=== PATIENT | female | born 1940 | race Caucasian/White ===

== ENCOUNTER → 2018-02-16 | Outpatient (CLI) | payer MEDICARE, OTHER ==
[~2018-02-16] MED LIST: ALLO100 PO; ATEN25 PO; HYDACE5 PO; POTA10T PO; POTA20PAC PO; RXHYDACE PO; TRAM50 PO; TRIHYD5075 PO
== END | disposition home or self-care (01) ==
LOC: LAB EV 17:10 → LAB SHORT 17:10
DX: N39.0 Urinary tract infection, site not specified (principal)
CPT/HCPCS: 87086

== ENCOUNTER 2018-06-23 16:52 | Emergency (ER) | payer MEDICARE, OTHER ==
[~2018-06-23] VITALS: Ht 157.5 cm; Wt 127.0 kg
[2018-06-23] MEDS ORDERED: LISI5 PO (17:41)
[2018-06-23] MEDS ORDERED: BUME1 (17:41)
[2018-06-23] MEDS ORDERED: PANT40 PO (17:42)
[2018-06-23] MEDS ORDERED: METO50ER PO (17:42)
[2018-06-23] MEDS ORDERED: Bumetanide0.5 MG PO (18:10)
[2018-06-23 18:50] LABS: Blood, Urine 5+ (Neg); Glucose Qualitative, Urine Neg (Neg); Ketones, Urine 1+ (Neg); Leukocyte Esterase, Urine 3+ (Neg); Nitrite, Urine Pos (Neg); Protein, Urine 3+ (Neg); Urobilinogen, Urine 3+ (Normal)
[2018-06-23] MEDS ORDERED: Keflex500 MG PO (19:13)
[2018-06-23 19:17] LABS: Appearance, Urine Cloudy (Clear); Bilirubin, Urine 1+ (Neg); Color, Urine Amber (P-Yellow)
[2018-06-23 19:18] LABS: Amorphous Light (0-Heavy); Bacteria Mod /hpf; Mucus Mod (0-Heavy); Source, Urine Catheter; Squamous Epithelial Cells Few /hpf (Few); White Blood Cells, Urine TNTC /hpf (0-5)
== END 2018-06-23 19:59 | disposition home or self-care (01) ==
LOC: ER 16:52
PROVIDERS: Emergency Medicine
DX: S86.912A Strain of unspecified muscle(s) and tendon(s) at lower leg level, left leg, initial encounter (principal); N39.0 Urinary tract infection, site not specified; E66.01 Morbid (severe) obesity due to excess calories; Z68.43 Body mass index [BMI] 50.0-59.9, adult; W17.89XA Other fall from one level to another, initial encounter; Z88.5 Allergy status to narcotic agent; Z79.899 Other long term (current) drug therapy; I10 Essential (primary) hypertension
CPT/HCPCS: 73700; 81001; 87077; 87086; 87186; 99284-25; P9612

== ENCOUNTER 2018-07-08 16:54 | Inpatient (IN) | payer MEDICARE, OTHER ==
[~2018-07-08] VITALS: Ht 157.5 cm; Wt 122.3 kg
[~2018-07-08 16:54] MED LIST changes: +BUME1; +BUME2 PO; +Keflex500 MG PO; +LISI5 PO; +METO50ER PO; +PANT40 PO
[2018-07-08 17:39] LABS: BASOPHILS ABSOLUTE AUTO 0.06 K/mm3 (0.00-0.23); BASOPHILS PERCENT AUTO 0 % (0-2); EOSINOPHILS PERCENT AUTO 0 % (0-6); Hemoglobin 13.4 g/dL (11.5-16.0); IMMATURE GRAN ABSOLUTE AUTO 0.25 K/mm3 (0.00-0.10); IMMATURE GRAN PERCENT AUTO 1 % (0-1); LYMPHOCYTES ABSOLUTE AUTO 0.69 K/mm3 (0.84-5.20); LYMPHOCYTES PERCENT AUTO 3 % (21-46); MONOCYTES ABSOLUTE AUTO 2.55 K/mm3 (0.16-1.47); MONOCYTES PERCENT AUTO 10 % (4-13); Mean Corpuscular HGB 32.1 pg (26.0-34.0); Mean Corpuscular HGB Conc 33.5 g/dL (31.5-36.5); Mean Corpuscular Volume 96 fL (80-100); Mean Platelet Volume 10.2 fL (9.1-12.4); NEUTROPHILS ABSOLUTE AUTO 22.18 K/mm3 (1.96-9.15); NEUTROPHILS PERCENT AUTO 86 % (41-73); Platelet Count 224 K/mm3 (150-400); RDW Coefficient Variation 13.2 % (11.7-14.2); RDW Standard Deviation 46.7 fL (35.1-46.3); Red Blood Cell Count 4.18 M/mm3 (3.80-5.20); White Blood Cell Count 25.73 K/mm3 (4.00-11.30)
[2018-07-08 18:04] LABS: Albumin, Blood 2.7 g/dL (3.4-5.0); Albumin/Globulin Ratio 0.7 (0.8-1.8); Bilirubin, Total 1.6 mg/dL (0.1-1.0); Bun/Creatinine Ratio 18.7 (12.0-20.0); Calcium, Blood 9.2 mg/dL (8.5-10.1); Creatinine, Blood 1.34 mg/dL (0.40-1.00); Globulin, Blood 3.8 g/dL (2.2-4.0); Potassium, Blood 3.8 mmol/L (3.5-5.5); Total Protein, Blood 6.5 g/dL (6.4-8.2); Troponin I 0.076 ng/mL (0.000-0.040)
[2018-07-08 19:28] LABS: Source, Urine Catheter
[2018-07-08 19:30] LABS: Appearance, Urine Cloudy (Clear); Bilirubin, Urine Neg (Neg); Blood, Urine 5+ (Neg); Color, Urine Amber (P-Yellow); Glucose Qualitative, Urine Neg (Neg); Ketones, Urine 1+ (Neg); Leukocyte Esterase, Urine 3+ (Neg); Nitrite, Urine Pos (Neg); Protein, Urine 3+ (Neg); Specific Gravity, Urine 1.015 (1.003-1.022); Urobilinogen, Urine 1+ (Normal)
[2018-07-08 19:49] LABS: White Blood Cells, Urine TNTC /hpf (0-5)
[2018-07-08 19:50] LABS: Bacteria Many /hpf; Red Blood Cells, Urine 25-50 /hpf (0-2); Squamous Epithelial Cells Rare /hpf (Few)
--- NOTE | 2018-07-08 21:26 | NUR ---
Report from Jass WAGNER on PT being admitted with UTI unresolved on oral keflex completed course and still has foul smelling urine elevated wbc and profound weakness per medical record. PT had elevated troponin 0.076 resulted at 1804 and will be on tele monitor and continue serial troponins. PT had Son accompany to ER but he has gone home and PT reported to be poor historian. Sellers cath was placed in ED. Await admission
[2018-07-09 00:32] LABS: Creatine Kinase MB 4.1 ng/mL (0.0-3.6); Creatine Kinase MB Index 1.6 (0.0-4.0); Troponin I 0.108 ng/mL (0.000-0.040)
--- NOTE | 2018-07-09 06:26 | NUR ---
PT CONTINUES TO HAVE PAIN AND PROBLEMS WITH URINARY TRACT INFECTION. ELEVATED TROPONIN X 2 2ND SLIGHTLY HIGHER. DENIES CHEST PAIN . HAS ECHO PENDING . 3 PLUS DEEP EDEMA WITH MULTPLE SKIN ISSUES RELATED TO MOISURE AND PRESSURE. PAUL WAS PLACED IN ER AND URINE FOUL SMELLING DARK ABNER WITH SEDIMENT CLOUDY. CO BURNING HX RECENT ECOLI UTI WITH ORAL ABX COMPLETED. MORBID OBESITY, HX OF SEVERAL RECEMNT FALLS. MEDICATED X 2 WITH TYLENOL AND 2ND LITER OF IV FLUID RUNNING
[2018-07-09 08:22] LABS: BASOPHILS ABSOLUTE AUTO 0.05 K/mm3 (0.00-0.23); BASOPHILS PERCENT AUTO 0 % (0-2); EOSINOPHILS ABSOLUTE AUTO 0.01 K/mm3 (0.00-0.68); EOSINOPHILS PERCENT AUTO 0 % (0-6); Hematocrit 37.2 % (33.0-51.0); Hemoglobin 11.9 g/dL (11.5-16.0); IMMATURE GRAN ABSOLUTE AUTO 0.35 K/mm3 (0.00-0.10); IMMATURE GRAN PERCENT AUTO 2 % (0-1); LYMPHOCYTES ABSOLUTE AUTO 0.85 K/mm3 (0.84-5.20); LYMPHOCYTES PERCENT AUTO 4 % (21-46); MONOCYTES ABSOLUTE AUTO 1.74 K/mm3 (0.16-1.47); MONOCYTES PERCENT AUTO 8 % (4-13); Mean Corpuscular HGB 31.2 pg (26.0-34.0); Mean Corpuscular Volume 97 fL (80-100); Mean Platelet Volume 10.1 fL (9.1-12.4); NEUTROPHILS ABSOLUTE AUTO 17.97 K/mm3 (1.96-9.15); NEUTROPHILS PERCENT AUTO 86 % (41-73); Platelet Count 199 K/mm3 (150-400); RDW Coefficient Variation 13.5 % (11.7-14.2); RDW Standard Deviation 48.2 fL (35.1-46.3); Red Blood Cell Count 3.82 M/mm3 (3.80-5.20); White Blood Cell Count 20.97 K/mm3 (4.00-11.30)
[2018-07-09 08:47] LABS: Albumin, Blood 2.3 g/dL (3.4-5.0); Albumin/Globulin Ratio 0.7 (0.8-1.8); Bilirubin, Total 1.4 mg/dL (0.1-1.0); Calcium, Blood 8.9 mg/dL (8.5-10.1); Creatinine, Blood 1.5 mg/dL (0.40-1.00); Globulin, Blood 3.5 g/dL (2.2-4.0); Potassium, Blood 4.2 mmol/L (3.5-5.5); Total Protein, Blood 5.8 g/dL (6.4-8.2)
[2018-07-09 08:50] LABS: Creatine Kinase MB 3.5 ng/mL (0.0-3.6); Creatine Kinase MB Index 1.7 (0.0-4.0); Troponin I 0.087 ng/mL (0.000-0.040)
--- NOTE | 2018-07-09 18:49 | NUR ---
SHIFT SUMMARY PATIENT A&O X3, CAN BE FORGETFUL AT TIMES. REPOSITION PRN. MEDICATED X1 FOR PAIN. DENIES ANY NAUSEA. SOB W/ EXERTION. 02 @ 2 L NC. D5 1/2NS KCL 10 MeQ RUNNING @ 125. FAMILY AT THE BEDSIDE. NO ACUTE CHANGES.
--- NOTE | 2018-07-09 23:44 | NUR ---
called positive blood culture result to MD Carter after discussing current antibotic coverage with Pharmacist Jin. No new orders. PT recieved 2 gram iv rocephin and getting IV fluids at 125 ml hr. Urine foul cloudy and previous urine culture showed Ecoli UTI.
[2018-07-10 05:19] LABS: Albumin, Blood 2.1 g/dL (3.4-5.0); Anion Gap 6 mmol/L (6-16); Blood Urea Nitrogen 27 mg/dL (8-24); Bun/Creatinine Ratio 19.6 (12.0-20.0); CO2, Blood 25 mmol/L (21-32); Calcium, Blood 8.5 mg/dL (8.5-10.1); Chloride, Blood 109 mmol/L (98-108); Creatinine, Blood 1.38 mg/dL (0.40-1.00); Glomerular Filtration Rate 39 (60-); Glucose, Blood 133 mg/dL (70-99); Phosphorus, Blood 2.8 mg/dL (2.5-4.9); Sodium, Blood 140 mmol/L (136-145)
--- NOTE | 2018-07-10 05:41 | NUR ---
PT HAS POSITIVE BLOOD CULTUE AND CONTINUES TO CO BACK AND FLANK PAIN. COUGHING HACKING NONPRODUCTIVE. PT HAS MULTIPLE SKIN ISSUES MOISTURIZERS APPLIED WELL ANTIFUNGAL POWDER. DIFFICULT TO MOVE IN BED DUE TO OBESITY. HAS LARGE UNEQUAL PANNUS LT SIDED LARGE SKIN FLAP. PERIODS OF FEELING HOT VERSUS COLD. CONTINUES ON IV FLUID WITH POTASSIUM AND IV ANTIBIOTICS FOR UTI
--- NOTE | 2018-07-10 07:56 | NUR ---
PT REPORTS FEELING SOB THIS AM, RESP AT 20 AND O2 SATUARTIONS AT 90. PT REPOSITIONS TO FOWLERS AND RESP AT 20 AND 02 SAT 93-94% ON RA. LS DIMINISHED T/O, EXP WHEEZE IN STARR. NOTIFED DR MELENDEZ, NEW ORDERS FOR RT PER PROTOCOL AND ST EVAL. WILL CONTINUE TO MONITOR.
--- NOTE | 2018-07-10 19:54 | NUR ---
SHIFT SUMMARY PT A&Ox3, FORGETFUL AT TIMES. PT RESTING IN BED DURING SHIFT, REPOSITIONED FOR COMFORT. PT UP IN CHAIR FOR LUNCH, MAX ASSIST TO AND FROM CHAIR. PT REPORTS GENERALIZED AND BACK PAIN, MEDICATED X1 WITH TYLENOL. PT SOB THIS AM, O2 SATURATION >92% ON RA, COUGH PRESENT. LS DIM T/O, BREATHING TREATMENT PER RT. PT DENIES N/V DURING SHIFT. PT RECEIVING IV ANTIBIOTICS. PAUL IN PLACE, PATENT AND DRAINING. ELEVATED BP THIS AM, TRENDING DOWN THIS AFTERNOON. OTHER VSS. NO OTHER ACUTE CHANGES NOTED DURING SHIFT. REPORT GIVEN TO ONCOMING RN.
--- NOTE | 2018-07-11 04:22 | NUR ---
Shift summary: Pt gets short of breath very easily with very little exertion. Pt then starts to panic. Pt then has to sit at side of breath to get her breath. Her abdomen pushes up against her lungs when she is in bed. Pt does not tolerate laying flat at all. Face gets very red. Very difficult to turn her and keep her comfortable. Tylenol given x 2 during night for headache.
[2018-07-11 05:39] LABS: BASOPHILS ABSOLUTE AUTO 0.02 K/mm3 (0.00-0.23); BASOPHILS PERCENT AUTO 0 % (0-2); EOSINOPHILS ABSOLUTE AUTO 0.12 K/mm3 (0.00-0.68); EOSINOPHILS PERCENT AUTO 2 % (0-6); Hematocrit 38.3 % (33.0-51.0); Hemoglobin 12.1 g/dL (11.5-16.0); IMMATURE GRAN ABSOLUTE AUTO 0.02 K/mm3 (0.00-0.10); IMMATURE GRAN PERCENT AUTO 0 % (0-1); LYMPHOCYTES PERCENT AUTO 14 % (21-46); MONOCYTES PERCENT AUTO 10 % (4-13); Mean Corpuscular HGB 31.3 pg (26.0-34.0); Mean Corpuscular HGB Conc 31.6 g/dL (31.5-36.5); Mean Corpuscular Volume 99 fL (80-100); Mean Platelet Volume 10.6 fL (9.1-12.4); NEUTROPHILS ABSOLUTE AUTO 5.93 K/mm3 (1.96-9.15); NEUTROPHILS PERCENT AUTO 74 % (41-73); Platelet Count 219 K/mm3 (150-400); RDW Coefficient Variation 13.4 % (11.7-14.2); Red Blood Cell Count 3.87 M/mm3 (3.80-5.20); White Blood Cell Count 7.99 K/mm3 (4.00-11.30)
[2018-07-11 06:14] LABS: Magnesium, Blood 1.6 mg/dL (1.6-2.4)
[2018-07-11 06:16] LABS: Alanine Aminotransfer (ALT/SGP 15 U/L (12-78); Albumin, Blood 1.6 g/dL (3.4-5.0); Albumin/Globulin Ratio 0.3 (0.8-1.8); Alk Phos 124 U/L (50-136); Anion Gap 9 mmol/L (6-16); Aspartate Aminotrans (AST/SGOT 13 U/L (12-37); Bilirubin, Total 0.5 mg/dL (0.1-1.0); Blood Urea Nitrogen 19 mg/dL (8-24); Bun/Creatinine Ratio 24.7 (12.0-20.0); CO2, Blood 22 mmol/L (21-32); Calcium, Blood 8.4 mg/dL (8.5-10.1); Chloride, Blood 108 mmol/L (98-108); Creatinine, Blood 0.77 mg/dL (0.40-1.00); Globulin, Blood 4.6 g/dL (2.2-4.0); Glomerular Filtration Rate >60 (60-); Glucose, Blood 80 mg/dL (70-99); Phosphorus, Blood 2.6 mg/dL (2.5-4.9); Potassium, Blood 4.4 mmol/L (3.5-5.5); Sodium, Blood 139 mmol/L (136-145); Total Protein, Blood 6.2 g/dL (6.4-8.2)
--- NOTE | 2018-07-11 17:20 | NUR ---
SHIFT SUMMARY THE PATIENT PRESENTED THIS SHIFT WITH VITALS WNL, A&O X3 AND WITH LUNG SOUNDS THAT HAD AN INSPIRATIONAL WHEEZE ON THE RIGHT SIDE UPPER AND DIMINISHED THROUGHOUT. THE PATIENT HAS WORKED WITH PT/OT AND HAS BEEN GOTTEN OUT OF BED THREE TIMES THIS SHIFT. THE PATIENT WENT DOWN TO X-RAY FOR PICTURES. THE PATIENT'S SON WAS INTO VISIT THIS SHIFT AROUND LUNCH. THE PATIENT IS SITTING IN HER CHAIR AT THIS TIME, WILL CONTINUE TO MONITOR.
--- NOTE | 2018-07-12 04:50 | NUR ---
sHIFT SUMMARY. Pt very anxious during the night. It starts with a coughing spell, and lots of wheezing. pt gets very anxious and cant breath unless she sits up at side of bed. No sputum noted. VSS. Pt recieved resp tx's x 2 during the night. pt states they seem to help.
[2018-07-12 05:34] LABS: Albumin, Blood 2.2 g/dL (3.4-5.0); Anion Gap 5 mmol/L (6-16); Blood Urea Nitrogen 20 mg/dL (8-24); Bun/Creatinine Ratio 17.2 (12.0-20.0); CO2, Blood 26 mmol/L (21-32); Calcium, Blood 9.5 mg/dL (8.5-10.1); Chloride, Blood 110 mmol/L (98-108); Creatinine, Blood 1.16 mg/dL (0.40-1.00); Glomerular Filtration Rate 48 (60-); Glucose, Blood 96 mg/dL (70-99); Phosphorus, Blood 2.4 mg/dL (2.5-4.9); Potassium, Blood 4.2 mmol/L (3.5-5.5); Sodium, Blood 141 mmol/L (136-145)
[2018-07-12 14:44] LABS: Adenovirus Not Detected (NOT DETECT); Coronavirus 229E Not Detected (NOT DETECT); Coronavirus HKU1 Not Detected (NOT DETECT); Coronavirus NL63 Not Detected (NOT DETECT); Coronavirus OC43 Not Detected (NOT DETECT); Human Metapneumovirus Not Detected (NOT DETECT); Human Rhinovirus/Enterovirus Not Detected (NOT DETECT); Influenza A Not Detected (NOT DETECT); Influenza A/2009-H1 Not Detected (NOT DETECT); Influenza A/H1 Not Detected (NOT DETECT); Influenza A/H3 Not Detected (NOT DETECT); Influenza B Not Detected (NOT DETECT); Parainfluenza Virus 1 Not Detected (NOT DETECT); Parainfluenza Virus 2 Not Detected (NOT DETECT)
[2018-07-12 14:45] LABS: Bordetella pertussis Not Detected (NOT DETECT); Chlamydophila pneumoniae Not Detected (NOT DETECT); Mycoplasma pneumoniae Not Detected (NOT DETECT); Parainfluenza Virus 3 Not Detected (NOT DETECT); Parainfluenza Virus 4 Not Detected (NOT DETECT); Respiratory Syncytial Virus Not Detected (NOT DETECT)
--- NOTE | 2018-07-12 17:08 | NUR ---
DR. SOMERS CALLED BACK PT MUST BE NPO AT MIDNIGHT TONIGHT FOR TOMORROW'S PROCEDURE. SHE MAY EAT/DRINK UNTIL THEN
--- NOTE | 2018-07-12 17:28 | NUR ---
SHIFT SUMMARY 77 YR OLD FEMALE ADMITTED FOR SEPSIS, UTI, FALLS, SOB, PAIN. FULL CODE. E-COLI IN URINE. MORBID OBESITY. DUE TO HAVE A URETERAL STENT PLACED TOMORROW BY DR. SOMERS. SHE IS NPO AT MIDNIGHT TONIGHT. SHE LIVES AT HOME WITH AND 3 GROWN SONS. HX: CHF, HTN, CVA, GERD, FALLS. IV IN RT WRIST IS POSITIONAL. PLAN IS FOR DC TO REHAB, THEN HOME. 2 LPM OF O2. PT STATES FREQUENT SOB AND COUGHING. SHE IS CHILKOOT - W/2 BILATERAL HEARING AIDS. SHE IS ANXIOUS. INFORMED THAT SHE IS AN EASY ONE PERSON ASSIST W/FWW AND GAITBELT, BUT I AM UNCONVINCED. I PERSONALLY FEEL SAFER WITH A 2 PERSON FOR TRANSFERS WITH THIS PT. SHE IS WEAK, SHAKEY, AND HX OF FALLS.
[2018-07-13 04:10] LABS: BASOPHILS ABSOLUTE AUTO 0.03 K/mm3 (0.00-0.23); BASOPHILS PERCENT AUTO 1 % (0-2); EOSINOPHILS ABSOLUTE AUTO 0.21 K/mm3 (0.00-0.68); EOSINOPHILS PERCENT AUTO 4 % (0-6); Hematocrit 37.1 % (33.0-51.0); Hemoglobin 11.9 g/dL (11.5-16.0); IMMATURE GRAN ABSOLUTE AUTO 0.02 K/mm3 (0.00-0.10); IMMATURE GRAN PERCENT AUTO 0 % (0-1); LYMPHOCYTES ABSOLUTE AUTO 1.77 K/mm3 (0.84-5.20); LYMPHOCYTES PERCENT AUTO 34 % (21-46); MONOCYTES ABSOLUTE AUTO 0.54 K/mm3 (0.16-1.47); MONOCYTES PERCENT AUTO 11 % (4-13); Mean Corpuscular HGB Conc 32.1 g/dL (31.5-36.5); Mean Corpuscular Volume 97 fL (80-100); Mean Platelet Volume 9.6 fL (9.1-12.4); NEUTROPHILS ABSOLUTE AUTO 2.58 K/mm3 (1.96-9.15); NEUTROPHILS PERCENT AUTO 50 % (41-73); Platelet Count 240 K/mm3 (150-400); RDW Coefficient Variation 13.1 % (11.7-14.2); Red Blood Cell Count 3.84 M/mm3 (3.80-5.20); White Blood Cell Count 5.15 K/mm3 (4.00-11.30)
[2018-07-13 04:31] LABS: Albumin, Blood 2.2 g/dL (3.4-5.0); Anion Gap 5 mmol/L (6-16); Blood Urea Nitrogen 20 mg/dL (8-24); CO2, Blood 30 mmol/L (21-32); Calcium, Blood 9.6 mg/dL (8.5-10.1); Chloride, Blood 108 mmol/L (98-108); Creatinine, Blood 1.11 mg/dL (0.40-1.00); Glomerular Filtration Rate 50 (60-); Glucose, Blood 93 mg/dL (70-99); Phosphorus, Blood 3.1 mg/dL (2.5-4.9); Sodium, Blood 143 mmol/L (136-145)
--- NOTE | 2018-07-13 07:09 | NUR ---
SHIFT SUMMARY PT SLEPT T/O SHIFT. PT WAS MADE NPO AT MIDNIGHT PER ORDERS. PT HAD NO COMPLAINTS OR ISSUES NOTED. CALL LIGHT IN REACH
--- NOTE | 2018-07-13 15:28 | NUR ---
PT TAKEN FOR SURGERY PT TAKEN FOR URETERAL STENT PLACEMENT. I WAS INFORMED PT WILL BE RETURNED TO MY CARE. I PROVIDED EMPLOYEE BENEFITS INSURANCE AGENT WITH [employer]LLY PROTOCOL RE: POST-OP VITALS.
--- NOTE | 2018-07-13 16:12 | NUR ---
PT RETURNED FROM SURGERY PT A&O X4, REQUESTING [id number] MEDS. I AM KEEPING NPO UNTIL I CAN CONTACT DR FOR FURTHER ORDERS. SURGICAL NURSE INFORMED ME THAT PT TOLERATED PROCEDURE WELL. SANGUINOUS/PUS FLUID DRAINING INTO BAG SECURED BY TEGODERM-GRAVITY DRAIN. FAMILY IN ROOM WITH PT. POST OP VITAL SIGNS BEGUN.
--- NOTE | 2018-07-13 16:41 | NUR ---
PT REFUSING PAIN MEDS PT STATES SHE WILL ONLY TAKE TYLENOL FOR PAIN CONTROL. PT RATES HER PAIN AN 8. SHE DID ACCEPT 650 MG OF TYLENOL FOR PAIN CONTROL. WILL REASSESS
--- NOTE | 2018-07-13 17:39 | NUR ---
SHIFT SUMMARY 77 YR OLD FEMALE ADMITTED FOR SEPSIS/UTI/FALLS/SOB/PAIN. FULL CODE. FOUND TO HAVE A KIDNEY STONE OBSTRUCTION. TODAY DR. SOMERS PERFORMED A URETERAL STENT PROCEDURE TO THE LEFT SIDE. PT TOLERATED PROCEDURE WELL. PUS AND SANGUINOUS FLUID IS GRAVITY DRAINING INTO TUBING WHICH IS ATTACHED TO A NEPHROSTOMY BAG. DR. SOMERS DOES NOT RECOMMEND THIS BE FLUSHED. POST OP VITAL SIGNS ARE BEING PERFORMED PER POLICY AND ORDERS. PT LIVES AT HOME WITH FAMILY, BUT FAMILY REQUESTS REHAB BEFORE PT IS RETURNED HOME. PT PREFERS TO DC DIRECTLY TO HOME. PT RECEIVING IV BUMEX WHICH IS WORKING TO GREAT EFFECT TO MANAGE SUSPECTED FLUID OVERLOAD. PT REFUSING NARCOTIC PAIN CONTROL, ONLY ACCEPTING TYLENOL. PT HAS BEEN RESTARTED ON HER ORDERED CARDIAC DIET. SHE DOES HAVE A PAUL IN PLACE WELL. PT IS A&O X4. HX: CHF, HTN, GERD, FALLS. EUN IS ALSO FOLLOWING THIS PT.
--- NOTE | 2018-07-13 20:12 | NUR ---
*STENT OUTPUT* 200 ML SEROSANGUNIOUS EMPTIED.
--- NOTE | 2018-07-14 02:58 | NUR ---
*OUTPUT NEPHROSTOMY* 200 ML SEROSANGUIANOUS
--- NOTE | 2018-07-14 04:02 | NUR ---
SHIFT SUMMARY PT HAS EXPERIENCED INCREASED PAIN T/O SHIFT. PT TX PER EMAR WITH INCREASED COMFORT. PT HAS BEEN ABLE TO SLEEP OFF AND ON. PT HAS DIFFICULTY FINDING POSITION OF COMFORT. PT HAD NO OTHER ISSUES NOTED. PT CURRENTLY SLEEPING AND BREATHING EASY. CALL LIGHT IN REACH AND BED ALARM ON.
[2018-07-14 05:38] LABS: BASOPHILS ABSOLUTE AUTO 0.03 K/mm3 (0.00-0.23); BASOPHILS PERCENT AUTO 0 % (0-2); EOSINOPHILS ABSOLUTE AUTO 0.11 K/mm3 (0.00-0.68); EOSINOPHILS PERCENT AUTO 1 % (0-6); Hemoglobin 12.7 g/dL (11.5-16.0); IMMATURE GRAN ABSOLUTE AUTO 0.03 K/mm3 (0.00-0.10); IMMATURE GRAN PERCENT AUTO 0 % (0-1); LYMPHOCYTES ABSOLUTE AUTO 0.92 K/mm3 (0.84-5.20); LYMPHOCYTES PERCENT AUTO 11 % (21-46); MONOCYTES ABSOLUTE AUTO 0.86 K/mm3 (0.16-1.47); MONOCYTES PERCENT AUTO 10 % (4-13); Mean Corpuscular HGB 31.5 pg (26.0-34.0); Mean Corpuscular HGB Conc 32.6 g/dL (31.5-36.5); Mean Corpuscular Volume 97 fL (80-100); NEUTROPHILS ABSOLUTE AUTO 6.84 K/mm3 (1.96-9.15); NEUTROPHILS PERCENT AUTO 78 % (41-73); RDW Coefficient Variation 13.2 % (11.7-14.2); RDW Standard Deviation 47.4 fL (35.1-46.3); Red Blood Cell Count 4.03 M/mm3 (3.80-5.20); White Blood Cell Count 8.79 K/mm3 (4.00-11.30)
[2018-07-14 05:51] LABS: Mean Platelet Volume 11.4 fL (9.1-12.4)
[2018-07-14 06:04] LABS: Alanine Aminotransfer (ALT/SGP 22 U/L (12-78); Albumin, Blood 2.5 g/dL (3.4-5.0); Albumin/Globulin Ratio 0.6 (0.8-1.8); Alk Phos 106 U/L (50-136); Anion Gap 8 mmol/L (6-16); Aspartate Aminotrans (AST/SGOT 19 U/L (12-37); Bilirubin, Total 0.5 mg/dL (0.1-1.0); Blood Urea Nitrogen 20 mg/dL (8-24); Bun/Creatinine Ratio 19.2 (12.0-20.0); CO2, Blood 29 mmol/L (21-32); Calcium, Blood 9.4 mg/dL (8.5-10.1); Chloride, Blood 106 mmol/L (98-108); Creatinine, Blood 1.04 mg/dL (0.40-1.00); Globulin, Blood 3.9 g/dL (2.2-4.0); Glomerular Filtration Rate 54 (60-); Glucose, Blood 98 mg/dL (70-99); Magnesium, Blood 1.8 mg/dL (1.6-2.4); Phosphorus, Blood 3.2 mg/dL (2.5-4.9); Potassium, Blood 3.9 mmol/L (3.5-5.5); Sodium, Blood 143 mmol/L (136-145); Total Protein, Blood 6.4 g/dL (6.4-8.2)
--- NOTE | 2018-07-14 17:44 | NUR ---
PATIENT A/OX3, FORGETFUL AT TIMES. L NEPHROSTOMY DRAINING PINK/YELLOW URINE. PAUL TO GRAVITY WITH CLEAR YELLOW OUTPUT. REPORTS PAIN TO L FLANK AND R KNEE. FENTANYL AND TYLENOL GIVEN TO TREAT. PATIENT IS VERY ANXIOUS AT TIMES, CALMS WITH DISCUSSION. MEDICATED X1 FOR NAUSEA THIS SHIFT, REPORTS POOR APPETITE. MULTIPLE SKIN ISSUES, NYSTATIN POWDER TO FOLDS. FALL PRECAUTIONS IN PLACE PER UNIT PROTOCOL.
[2018-07-15 05:36] LABS: BASOPHILS ABSOLUTE AUTO 0.05 K/mm3 (0.00-0.23); BASOPHILS PERCENT AUTO 1 % (0-2); EOSINOPHILS ABSOLUTE AUTO 0.17 K/mm3 (0.00-0.68); EOSINOPHILS PERCENT AUTO 2 % (0-6); Hematocrit 36.7 % (33.0-51.0); Hemoglobin 11.5 g/dL (11.5-16.0); IMMATURE GRAN ABSOLUTE AUTO 0.06 K/mm3 (0.00-0.10); IMMATURE GRAN PERCENT AUTO 1 % (0-1); LYMPHOCYTES ABSOLUTE AUTO 1.54 K/mm3 (0.84-5.20); LYMPHOCYTES PERCENT AUTO 17 % (21-46); MONOCYTES ABSOLUTE AUTO 1.09 K/mm3 (0.16-1.47); MONOCYTES PERCENT AUTO 12 % (4-13); Mean Corpuscular HGB 30.7 pg (26.0-34.0); Mean Corpuscular HGB Conc 31.3 g/dL (31.5-36.5); Mean Corpuscular Volume 98 fL (80-100); NEUTROPHILS ABSOLUTE AUTO 6.04 K/mm3 (1.96-9.15); NEUTROPHILS PERCENT AUTO 67 % (41-73); RDW Coefficient Variation 13.2 % (11.7-14.2); RDW Standard Deviation 47.2 fL (35.1-46.3); Red Blood Cell Count 3.74 M/mm3 (3.80-5.20); White Blood Cell Count 8.95 K/mm3 (4.00-11.30)
--- NOTE | 2018-07-15 05:36 | NUR ---
SHIFT SUMMARY PT SLEPT SOUNDLY T/O SHIFT. AOX3, REPORTS FEELING CONFUSED/DISORIENTED LAST NIGHT & ASKS "WHAT TIME IS IT?" WHEN INFORMED THE TIME SHE STATES "WOW, WHAT HAPPENED TO THE DAY? DID I SLEEP THROUGH IT?" VSS. REPORTS 8/10 PAIN ON BOTH SIDES OF LOWER BACK, MEDICATED W/TYLENOL PER ORDERS. PAUL IS PATENT & DRAINING CLEAR LIGHT YELLOW URINE, NEPHROSTOMY IS PATENT & DRAINING CLEAR (LIGHT RED) CRANBERRY COLORED OUTPUT. PT DENIES NAUSEA OR SOB. CALL LIGHT IS IN REACH.
[2018-07-15 05:51] LABS: Mean Platelet Volume 10.8 fL (9.1-12.4); Platelet Count 213 K/mm3 (150-400)
[2018-07-15 05:57] LABS: Albumin, Blood 2.3 g/dL (3.4-5.0); Anion Gap 5 mmol/L (6-16); Blood Urea Nitrogen 18 mg/dL (8-24); Bun/Creatinine Ratio 19.4 (12.0-20.0); CO2, Blood 30 mmol/L (21-32); Calcium, Blood 9.3 mg/dL (8.5-10.1); Chloride, Blood 104 mmol/L (98-108); Creatinine, Blood 0.93 mg/dL (0.40-1.00); Glomerular Filtration Rate >60 (60-); Glucose, Blood 86 mg/dL (70-99); Phosphorus, Blood 2.4 mg/dL (2.5-4.9); Potassium, Blood 3.4 mmol/L (3.5-5.5); Sodium, Blood 139 mmol/L (136-145)
--- NOTE | 2018-07-15 17:14 | NUR ---
Initial Visit: Palliative Care Consult for AD/POLST Pt is A&O and reports a tolerable pain level of 3/10. She denies dyspnea and anxiety at this time. Pt's son Alicia present for the first few minutes of visit before needing to leave to take care of errands. Engaged in therapeutic discussion regarding goals of care including AD/POLST. Pt reports living at home with her and 2 sons. Alicia is Pt's primary caregiver. 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 Alicia reports at present time having adequate support for her care needs. Listened as she discussed becoming depressed 6 years ago and let her self become deconditioned. She reports that she is motivated to become stronger and is looking forward to being discharged to SNF to help regain her strength. Pt reports her baseline is ability to transfer self and uses a wheelchair to get from point A to point B. She reports ability to dress her self and does spot baths. Engaged in discussion regarding advanced care planning if she continues to decondition. Pt reports that if needed she can affortd to higher caregivers. Discussed AD/POLST with Pt and the importance of having her wishes for life sustaining measures written. Pt states that she thinks she does not want to have CPR but would like to discuss this with her . Educated Pt on life sustaining measures indluding risk factors. She reports that she will have further discussions with her before completing POLST. Pt reports no concerns at this time. Left POLST for Pt to complete. Spoke with Pt's bedside nurse Samantha and she reports no concerns at this time. Palliative Care will remain available.
--- NOTE | 2018-07-15 18:31 | NUR ---
PATIENT A/OX4 THIS SHIFT, W/C BOUND AT BASELINE. SITS UP0 AT SIDE OF BED WITH ASSIST. NEPHROSTOMY DRAINING LIGHT PINK URINE. PAUL TO GRAVITY DRAINING ADEQUATE AMOUNT OF CLEAR/YELLOW URINE. PATIENT REPORTING PAIN TO L FLANK/HIP THIS SHIFT, FENTNAYL AND TYLENOL USED TO TREAT. VSS THIS SHIFT, ON RA. PATIENT TOLERATING DIET, CALLS APPROPRIATELY FOR ASSISTANCE. AWAITING SNF PLACEMENT.
[2018-07-16 05:20] LABS: BASOPHILS ABSOLUTE AUTO 0.05 K/mm3 (0.00-0.23); BASOPHILS PERCENT AUTO 1 % (0-2); EOSINOPHILS ABSOLUTE AUTO 0.35 K/mm3 (0.00-0.68); EOSINOPHILS PERCENT AUTO 4 % (0-6); Hematocrit 36.8 % (33.0-51.0); Hemoglobin 11.7 g/dL (11.5-16.0); IMMATURE GRAN PERCENT AUTO 1 % (0-1); LYMPHOCYTES ABSOLUTE AUTO 1.84 K/mm3 (0.84-5.20); LYMPHOCYTES PERCENT AUTO 21 % (21-46); MONOCYTES ABSOLUTE AUTO 0.88 K/mm3 (0.16-1.47); MONOCYTES PERCENT AUTO 10 % (4-13); Mean Corpuscular HGB 31.3 pg (26.0-34.0); Mean Corpuscular HGB Conc 31.8 g/dL (31.5-36.5); Mean Corpuscular Volume 98 fL (80-100); Mean Platelet Volume 9.8 fL (9.1-12.4); NEUTROPHILS ABSOLUTE AUTO 5.51 K/mm3 (1.96-9.15); NEUTROPHILS PERCENT AUTO 63 % (41-73); Platelet Count 228 K/mm3 (150-400); RDW Coefficient Variation 13.2 % (11.7-14.2); RDW Standard Deviation 47.2 fL (35.1-46.3); Red Blood Cell Count 3.74 M/mm3 (3.80-5.20); White Blood Cell Count 8.73 K/mm3 (4.00-11.30)
[2018-07-16 05:46] LABS: Calcium, Blood 9.5 mg/dL (8.5-10.1); Potassium, Blood 3.4 mmol/L (3.5-5.5)
--- NOTE | 2018-07-16 05:59 | NUR ---
SHIFT SUMMARY PT SLEPT WELL T/O NIGHT. NO ACUTE CHANGES THIS SHIFT. AOX4. VSS. DENIES NAUSEA OR SOB. REPORTS PAIN IN LT FLANK/HIP @NEPHROSTOMY SITE, MEDICATED 1X W/FENTANYL & TYLENOL PER ORDERS, DENIES ANY FURTHER DISCOMFORT THIS AM. NEPHROSTOMY IS DRAINING CLEAR LIGHT BROWN/SPENCER OUTPUT. PAUL IS PATENT & DRAINING CLEAR YELLOW URINE. CALL LIGHT IS IN REACH.
--- NOTE | 2018-07-16 17:37 | NUR ---
SHIFT SUMMARY PT HAS HAD MULTIPLE LARGE BM'S THIS SHIFT. PT HAD INCONTINENCE X1. PAUL AND LEFT NEPHROSTOMY PATENT AND DRAINING YELLOW URINE. NO COMPLAINTS OF PAIN THIS SHIFT. PT WORKED WITH PHYSICAL THERAPY THIS AM AND STOOD AT BEDSIDE. NO ACUTE CHANGES THIS SHIFT. CALL LIGHT IN REACH. WILL CONTINUE TO MONITOR AND REPORT TO ONCOMING RN.
--- NOTE | 2018-07-17 05:34 | NUR ---
SHIFT SUMMARY PT SLEPT SOUNDLY T/O NIGHT. NO ACUTE CHANGES THIS SHIFT. AOX4. VSS. DENIES NAUSEA OR SOB. STILL REPORTING L FLANK/SIDE PAIN, MEDICATED W/TYLENOL & FENTANYL PER ORDERS. NEPHROSTOMY IS PATENT W/CLEAR LIGHT RED/ORANGE DRAINAGE. PAUL IS PATENT & DRAINING. CALL LIGHT IS IN REACH.
[2018-07-17 06:03] LABS: Anion Gap 4 mmol/L (6-16); Blood Urea Nitrogen 18 mg/dL (8-24); CO2, Blood 33 mmol/L (21-32); Calcium, Blood 9.7 mg/dL (8.5-10.1); Chloride, Blood 106 mmol/L (98-108); Creatinine, Blood 0.95 mg/dL (0.40-1.00); Glomerular Filtration Rate >60 (60-); Glucose, Blood 94 mg/dL (70-99); Potassium, Blood 3.5 mmol/L (3.5-5.5); Sodium, Blood 143 mmol/L (136-145)
--- NOTE | 2018-07-17 16:49 | NUR ---
SHIFT SUMMARY TUYET COMPLAINED OF SOME L HIP PAIN TODAY, FOR WHICH TYLENOL WAS HELPFUL. UP TO A CHAIR FOR A FEW HOURS. AO1 TO BSC, HAD 2 BMS. PAUL INTACT AND DRAINING, SEDIMENT PRESENT IN URINE. NEPH TUBE DRESSING C/D/I, DRAINING LIGHT PINKISH URINE. NPO AT MIDNIGHT FOR STENT PLACEMENT TOMORROW. TOOK MEDS PRESCRIBED. CALL LIGHT IN REACH. WCTM
--- NOTE | 2018-07-18 07:12 | NUR ---
SHIFT SUMMARY A/O VENETIE. NEPHROSTOMY AND PAUL DRAINING YELLOW URINE. SHE WAS CATARINO TO SLEEP T/O NIGHT. C/O PAIN IN L HIP AND MEDICATED PER EMAR. CALL LIGHT IN REACH.
--- NOTE | 2018-07-18 14:22 | NUR ---
PT TRANSPORTED TO INTERVENTIONAL RADIOLOGY FOR STENT PLACEMENT VIA STRETCHER IN NO ACUTE DISTRESS.
--- NOTE | 2018-07-18 16:10 | NUR ---
RETURNED FROM PROCEDURE PT AWAKE AND ALERT. VSS. SIPPING ON APPLE JUICE. DENIES ANY PAIN; DRSG TO SITE CLEAN AND DRY. WILL CONTINUE TO MONITOR VITAL SIGNS PER PROTOCOL.
--- NOTE | 2018-07-18 18:15 | NUR ---
SHIFT SUMMARY OX4. TRANSFERS TO BSC AND CHAIR WITH GAIT BELT AND WALKER 1 ASSIST. MORBID OBESITY. PAUL. URINARY STENT PLACED TODAY WITH DR. SOMERS. EATING AND DRINKING WELL. NYSTATIN TO SKIN FOLDS. CONTINENT. CALLS APPROPRIATELY. PLAN FOR SNIFF UPON DISCHARGE.
--- NOTE | 2018-07-19 06:09 | NUR ---
PT had lt nephro tube dc and lt ureteral stent placed for lt obstructing kidney stone. continues on antibiotics to tx ecili uti. vega patent. pushed oral fluids due to poor urine output. urine clearing with increased fluids. Up OOB with 2 assist to bsc. small soft BM. PT is obese and skin folds yeasty rash improving with treatment.
--- NOTE | 2018-07-19 12:24 | NUR ---
UROSTOMY REMOVED YESTERDAY WITH STENT PLACEMENT; PAUL CATHETER REMOVED 07/19/18 @1225 PT TOLERATED WELL.
[2018-07-19] MEDS ORDERED: Acetaminophen325 M1 PO (14:36)
[2018-07-19] MEDS ORDERED: ALBU2.5V5 INH (14:36)
[2018-07-19] MEDS ORDERED: MELA3 PO (14:37)
[2018-07-19] MEDS ORDERED: Colace100 MG PO (14:37)
[2018-07-19] MEDS ORDERED: BISA5EC PO (14:37)
[2018-07-19] MEDS ORDERED: ONDA4 PO (14:38)
[2018-07-19] MEDS ORDERED: Miralax17 GM PO (14:38)
[2018-07-19] MEDS ORDERED: Nystop60 GM TOP (14:38)
[2018-07-19] MEDS ORDERED: Micro-K10 MEQ PO (14:38)
[2018-07-19] MEDS ORDERED: Pyridium100 MG PO (14:39)
[2018-07-19] MEDS ORDERED: SPIR25 PO (14:39)
[2018-07-19] MEDS ORDERED: SENN187 PO (14:39)
--- NOTE | 2018-07-19 16:41 | NUR ---
DISCHARGE SUMMARY PT DISCHARGED WITH [facility] VIA W/C ACCOMPANIED BY SON. ALL VALUABLES SENT HOME WITH PATIENT AND FAMILY. IV'S DISCONTINUED INTACT. PT AND FAMILY VERBALIZED UNDERSTANDING OF MEDICATIONS CHANGES AND GIVEN TIME TO ASK QUESTIONS.
== END 2018-07-19 16:53 | DRG 872 ==
LOC: ER 16:54 → MEDS 20:40 → ENPENDDIS 07-19 14:52 → MEDS 07-19 16:53
PROVIDERS: Emergency Medicine; Hospitalist; Internal Medicine Endocrinology, Diabetes & Metabolism; Physician Assistant; Student in an Organized Health Care Education/Training Program; ADMIT Internal Medicine
PROC: 0T913ZZ Drainage of Left Kidney, Percutaneous Approach (ICD-10-PCS; principal; 2018-07-13)
PROC: 0TP5X0Z Removal of Drainage Device from Kidney, External Approach (ICD-10-PCS; 2018-07-18)
PROC: 0T774DZ Dilation of Left Ureter with Intraluminal Device, Percutaneous Endoscopic Approach (ICD-10-PCS; 2018-07-18)
DX: A41.51 Sepsis due to Escherichia coli [E. coli] (principal); N13.6 Pyonephrosis; N17.9 Acute kidney failure, unspecified; I13.0 Hypertensive heart and chronic kidney disease with heart failure and stage 1 through stage 4 chronic kidney disease, or unspecified chronic kidney disease; I50.32 Chronic diastolic (congestive) heart failure; I24.8 Other forms of acute ischemic heart disease; Z68.43 Body mass index [BMI] 50.0-59.9, adult; J98.11 Atelectasis; E66.01 Morbid (severe) obesity due to excess calories; E87.6 Hypokalemia; N18.3 Chronic kidney disease, stage 3 (moderate); Z86.73 Personal history of transient ischemic attack (TIA), and cerebral infarction without residual deficits; E83.39 Other disorders of phosphorus metabolism; E88.09 Other disorders of plasma-protein metabolism, not elsewhere classified; E86.1 Hypovolemia; E87.70 Fluid overload, unspecified; Z99.3 Dependence on wheelchair; E78.5 Hyperlipidemia, unspecified; K21.9 Gastro-esophageal reflux disease without esophagitis; Z85.820 Personal history of malignant melanoma of skin; Z51.5 Encounter for palliative care
CPT/HCPCS: 36415; 50432; 50693; 51702; 71045; 71046; 71250; 74176; 76770; 80048; 80053; 80069; 81001; 82550; 82553; 83605; 83735; 83880; 84100; 84145; 84484; 85025; 86140; 87040; 87077; 87081; 87086; 87186; 87486; 87581; 87633; 87798; 92610; 93005; 93010; 93306; 93971; 94640; 94667; 94760; 96365-59; 97110; 97162; 97530; 99152; 99153; 99285-25; C1729; C1769; J0696; J1650; J2250; J2405; J3010; J7030; J7040; J7042; J7050; J7060; Q9967

== ENCOUNTER 2018-08-06 23:22 | Inpatient (IN) | payer MEDICARE, OTHER ==
[~2018-08-06] VITALS: Ht 157.5 cm; Wt 118.2 kg
[~2018-08-06 23:22] MED LIST changes: +ALBU2.5V5 INH; +Acetaminophen325 M1 PO; +BISA5EC PO; +Colace100 MG PO; +MELA3 PO; +METO25ER PO; -METO50ER PO; +Micro-K10 MEQ PO; +Miralax17 GM PO; +Nystop60 GM TOP; +ONDA4 PO; +Pyridium100 MG PO; +SENN187 PO; +SPIR25 PO
[2018-08-06] MEDS ORDERED: Anti-Diarrheal2 MG PO (23:53)
[2018-08-06] MEDS ORDERED: Zofran8 MG PO (23:54)
[2018-08-07 01:02] LABS: BASOPHILS ABSOLUTE AUTO 0.03 K/mm3 (0.00-0.23); BASOPHILS PERCENT AUTO 0 % (0-2); EOSINOPHILS ABSOLUTE AUTO 0.07 K/mm3 (0.00-0.68); EOSINOPHILS PERCENT AUTO 1 % (0-6); Hematocrit 38.8 % (33.0-51.0); Hemoglobin 12.6 g/dL (11.5-16.0); IMMATURE GRAN ABSOLUTE AUTO 0.04 K/mm3 (0.00-0.10); IMMATURE GRAN PERCENT AUTO 0 % (0-1); LYMPHOCYTES ABSOLUTE AUTO 0.62 K/mm3 (0.84-5.20); LYMPHOCYTES PERCENT AUTO 5 % (21-46); MONOCYTES ABSOLUTE AUTO 1.01 K/mm3 (0.16-1.47); MONOCYTES PERCENT AUTO 8 % (4-13); Mean Corpuscular HGB 31.8 pg (26.0-34.0); Mean Corpuscular HGB Conc 32.5 g/dL (31.5-36.5); Mean Corpuscular Volume 98 fL (80-100); Mean Platelet Volume 10.7 fL (9.1-12.4); NEUTROPHILS ABSOLUTE AUTO 11.11 K/mm3 (1.96-9.15); NEUTROPHILS PERCENT AUTO 86 % (41-73); Platelet Count 189 K/mm3 (150-400); RDW Coefficient Variation 13.5 % (11.7-14.2); RDW Standard Deviation 49.3 fL (35.1-46.3); Red Blood Cell Count 3.96 M/mm3 (3.80-5.20); White Blood Cell Count 12.88 K/mm3 (4.00-11.30)
[2018-08-07 01:19] LABS: Alanine Aminotransfer (ALT/SGP 18 U/L (12-78); Albumin, Blood 3.3 g/dL (3.4-5.0); Albumin, Blood 3.4 g/dL (3.4-5.0); Albumin/Globulin Ratio 0.9 (0.8-1.8); Alk Phos 94 U/L (50-136); Anion Gap 8 mmol/L (6-16); Aspartate Aminotrans (AST/SGOT 28 U/L (12-37); Bilirubin, Direct 0.2 mg/dL (0.0-0.3); Bilirubin, Indirect 0.4 mg/dL (0.1-0.7); Bilirubin, Total 0.6 mg/dL (0.1-1.0); Blood Urea Nitrogen 45 mg/dL (8-24); Bun/Creatinine Ratio 19.7 (12.0-20.0); CO2, Blood 28 mmol/L (21-32); Calcium, Blood 9.4 mg/dL (8.5-10.1); Chloride, Blood 102 mmol/L (98-108); Creatinine, Blood 2.28 mg/dL (0.40-1.00); Globulin, Blood 3.6 g/dL (2.2-4.0); Globulin, Blood 3.7 g/dL (2.2-4.0); Glomerular Filtration Rate 22 (60-); Glucose, Blood 119 mg/dL (70-99); Potassium, Blood 4.8 mmol/L (3.5-5.5); Sodium, Blood 138 mmol/L (136-145); Troponin I <0.015 ng/mL (0.000-0.040)
[2018-08-07 03:02] LABS: Source, Urine Catheter
[2018-08-07 03:05] LABS: Appearance, Urine Cloudy (Clear); Blood, Urine 4+ (Neg); Color, Urine Yellow (P-Yellow); Glucose Qualitative, Urine Neg (Neg); Ketones, Urine Neg (Neg); Leukocyte Esterase, Urine 3+ (Neg); Nitrite, Urine Neg (Neg); Protein, Urine 3+ (Neg); Urobilinogen, Urine NORM (Normal)
[2018-08-07 03:06] LABS: Bilirubin, Urine 1+ (Neg)
[2018-08-07 03:10] LABS: Red Blood Cells, Urine 0-2 /hpf (0-2); Squamous Epithelial Cells Few /hpf (Few); White Blood Cells, Urine TNTC /hpf (0-5)
[2018-08-07 03:11] LABS: Bacteria Many /hpf; Hyaline Casts 0-2 /lpf (0-2)
--- NOTE | 2018-08-07 06:50 | NUR ---
RECVD REPORT FROM PREVIOUS SHIFT RN ERASTO, PT SLEEPING IN BED WITH BED IN LOWEST POSITION, BED RAILS UP X 2, CALL LIGHT WITHIN REACH. COLLECTED SWABS FOR RULE OUT MRSA IN NARES AND THROAT. PT A/O X 4, PLEASANT
--- NOTE | 2018-08-07 17:43 | NUR ---
shift summary: vss, no acute changes, cooperative and pleasant, family visited x 1, dr israel rounded on pt, orders received. pt denies flank pain. pt with >500 ml urine out in the commode as well as 2 large incontinent voids in attends. pt received bed bath this shift. up in chair for dinner. no n/v, no BM for uncollected GI panel. pt awaiting information re: urology consult from PCPAnila.
[2018-08-07 21:09] LABS: Adenovirus F 40/41 Not Detected (NOT DETECT); Astrovirus Not Detected (NOT DETECT); Campylobacter Sp Not Detected (NOT DETECT); Cryptosporidium Not Detected (NOT DETECT); Cyclospora Cayetanensis Not Detected (NOT DETECT); E. Coli O157 Not Detected (NOT DETECT); Entamoeba Histolytica Not Detected (NOT DETECT); Enteroaggregative E. coli-EAEC Not Detected (NOT DETECT); Enteropathogenic E. coli-EPEC Not Detected (NOT DETECT); Enterotoxigenic E. coli-ETEC Not Detected (NOT DETECT); Giardia Lamblia Not Detected (NOT DETECT); Norovirus GI/GII Not Detected (NOT DETECT); Plesiomonas Shigelloides Not Detected (NOT DETECT); Rotavirus A Not Detected (NOT DETECT); Salmonella Sp Not Detected (NOT DETECT); Sapovirus Not Detected (NOT DETECT); Shiga Toxin-prod E. coli-STEC Not Detected (NOT DETECT); Shigella/Enteroin E. coli-EIEC Not Detected (NOT DETECT); Vibrio Cholerae Not Detected (NOT DETECT); Vibrio Sp Not Detected (NOT DETECT); Yersinia Enterocolitica Not Detected (NOT DETECT)
[2018-08-08 05:00] LABS: BASOPHILS ABSOLUTE AUTO 0.05 K/mm3 (0.00-0.23); BASOPHILS PERCENT AUTO 1 % (0-2); EOSINOPHILS ABSOLUTE AUTO 0.43 K/mm3 (0.00-0.68); EOSINOPHILS PERCENT AUTO 9 % (0-6); Hematocrit 37.9 % (33.0-51.0); Hemoglobin 12.1 g/dL (11.5-16.0); IMMATURE GRAN ABSOLUTE AUTO 0.02 K/mm3 (0.00-0.10); IMMATURE GRAN PERCENT AUTO 0 % (0-1); LYMPHOCYTES ABSOLUTE AUTO 1.49 K/mm3 (0.84-5.20); LYMPHOCYTES PERCENT AUTO 30 % (21-46); MONOCYTES ABSOLUTE AUTO 0.45 K/mm3 (0.16-1.47); MONOCYTES PERCENT AUTO 9 % (4-13); Mean Corpuscular HGB 31.8 pg (26.0-34.0); Mean Corpuscular HGB Conc 31.9 g/dL (31.5-36.5); Mean Corpuscular Volume 100 fL (80-100); Mean Platelet Volume 10.7 fL (9.1-12.4); NEUTROPHILS ABSOLUTE AUTO 2.54 K/mm3 (1.96-9.15); NEUTROPHILS PERCENT AUTO 51 % (41-73); Platelet Count 173 K/mm3 (150-400); RDW Coefficient Variation 13.7 % (11.7-14.2); RDW Standard Deviation 50.4 fL (35.1-46.3); White Blood Cell Count 4.98 K/mm3 (4.00-11.30)
[2018-08-08 05:21] LABS: Bun/Creatinine Ratio 18.5 (12.0-20.0); Calcium, Blood 9.4 mg/dL (8.5-10.1); Creatinine, Blood 1.57 mg/dL (0.40-1.00); Potassium, Blood 4.7 mmol/L (3.5-5.5)
--- NOTE | 2018-08-08 07:05 | NUR ---
recvd report from previous shift RN Summer, pt sleeping, bed in lowest position, bed rails up x 2, call light within reach.
--- NOTE | 2018-08-08 07:08 | NUR ---
dr israel to round on pt
--- NOTE | 2018-08-08 13:20 | NUR ---
dr israel to see pt, Anila neighborhood planner to see pt.
--- NOTE | 2018-08-08 15:50 | NUR ---
REPORT GIVEN TO BERNARD HOOD AT [facility] FOR RETURN VIA WHEELCHAIR VAN TO [facility] AT 1630. PERIPHERAL IV HAS BEEN REMOVED WNL. THIS RN AND DIRECTOR APPAREL WILL READY PT AND BELONGINGS.
--- NOTE | 2018-08-08 16:40 | NUR ---
PT TRANSFERRED TO [facility] FACILITY VIA WHEELCHAIR VAN.
== END 2018-08-08 16:46 | disposition home or self-care (01) | DRG 683 ==
LOC: ER 23:22 → SURS 23:23
PROVIDERS: Emergency Medicine; Student in an Organized Health Care Education/Training Program; ADMIT Internal Medicine
DX: N17.9 Acute kidney failure, unspecified (principal); Z68.43 Body mass index [BMI] 50.0-59.9, adult; N39.0 Urinary tract infection, site not specified; N20.0 Calculus of kidney; E86.0 Dehydration; I12.9 Hypertensive chronic kidney disease with stage 1 through stage 4 chronic kidney disease, or unspecified chronic kidney disease; N18.2 Chronic kidney disease, stage 2 (mild); E66.01 Morbid (severe) obesity due to excess calories; Z87.440 Personal history of urinary (tract) infections; K52.9 Noninfective gastroenteritis and colitis, unspecified; B37.2 Candidiasis of skin and nail
CPT/HCPCS: 36415; 51701; 74176; 80048; 80053; 80076; 81001; 82248; 83690; 84484; 85025; 87081; 87086; 87507; 93005; 93010; 96361; 96361-59; 96365-59; 96372; 96375-59; 99285-25; A9270; G0378; J0696; J1650; J2405; J7030

== ENCOUNTER 2018-08-15 09:15 | Emergency (ER) | payer MEDICARE, OTHER ==
[~2018-08-15] VITALS: Ht 157.5 cm; Wt 117.5 kg
[~2018-08-15 09:15] MED LIST changes: +Anti-Diarrheal2 MG PO; +Zofran8 MG PO
[2018-08-15] MEDS ORDERED: Florastor250 MG PO (09:32)
[2018-08-15] MEDS ORDERED: CEFD300 PO (09:34)
[2018-08-15] MEDS ORDERED: CVS DISPOSABLE399 ML PR (09:37)
[2018-08-15] MEDS ORDERED: Adult Glycerin1 EACH PR (09:38)
[2018-08-15 10:46] LABS: BASOPHILS ABSOLUTE AUTO 0.04 K/mm3 (0.00-0.23); BASOPHILS PERCENT AUTO 0 % (0-2); EOSINOPHILS ABSOLUTE AUTO 0.02 K/mm3 (0.00-0.68); EOSINOPHILS PERCENT AUTO 0 % (0-6); Hematocrit 42.3 % (33.0-51.0); IMMATURE GRAN ABSOLUTE AUTO 0.08 K/mm3 (0.00-0.10); IMMATURE GRAN PERCENT AUTO 1 % (0-1); LYMPHOCYTES ABSOLUTE AUTO 0.91 K/mm3 (0.84-5.20); LYMPHOCYTES PERCENT AUTO 7 % (21-46); MONOCYTES ABSOLUTE AUTO 0.92 K/mm3 (0.16-1.47); MONOCYTES PERCENT AUTO 7 % (4-13); Mean Corpuscular HGB 31.5 pg (26.0-34.0); Mean Corpuscular HGB Conc 33.1 g/dL (31.5-36.5); Mean Platelet Volume 10.3 fL (9.1-12.4); NEUTROPHILS ABSOLUTE AUTO 11.47 K/mm3 (1.96-9.15); NEUTROPHILS PERCENT AUTO 85 % (41-73); Platelet Count 207 K/mm3 (150-400); RDW Coefficient Variation 13.2 % (11.7-14.2); RDW Standard Deviation 46.5 fL (35.1-46.3); Red Blood Cell Count 4.44 M/mm3 (3.80-5.20); White Blood Cell Count 13.44 K/mm3 (4.00-11.30)
[2018-08-15 10:48] LABS: Mean Corpuscular Volume 95 fL (80-100)
[2018-08-15 11:21] LABS: Albumin, Blood 3.6 g/dL (3.4-5.0); Albumin/Globulin Ratio 0.9 (0.8-1.8); Bilirubin, Total 1.1 mg/dL (0.1-1.0); Bun/Creatinine Ratio 14.9 (12.0-20.0); Calcium, Blood 10.6 mg/dL (8.5-10.1); Creatinine, Blood 1.41 mg/dL (0.40-1.00); Globulin, Blood 3.9 g/dL (2.2-4.0); Potassium, Blood 3.9 mmol/L (3.5-5.5); Total Protein, Blood 7.5 g/dL (6.4-8.2)
== END 2018-08-15 14:30 | disposition home or self-care (01) ==
LOC: ER 09:15
PROVIDERS: Physician Assistant
DX: K59.00 Constipation, unspecified (principal); Z79.899 Other long term (current) drug therapy; Z88.5 Allergy status to narcotic agent; Z88.0 Allergy status to penicillin; Z88.8 Allergy status to other drugs, medicaments and biological substances; Z88.1 Allergy status to other antibiotic agents; I12.9 Hypertensive chronic kidney disease with stage 1 through stage 4 chronic kidney disease, or unspecified chronic kidney disease; N18.2 Chronic kidney disease, stage 2 (mild); F32.9 Major depressive disorder, single episode, unspecified; Z86.73 Personal history of transient ischemic attack (TIA), and cerebral infarction without residual deficits; Z87.891 Personal history of nicotine dependence
CPT/HCPCS: 36415; 74018; 74176; 80053; 85025; 99284-25

== ENCOUNTER → 2019-03-01 | Outpatient (CLI) | payer MEDICARE, OTHER ==
[~2019-03-01] MED LIST changes: +Adult Glycerin1 EACH PR; +CEFD300 PO; +CVS DISPOSABLE399 ML PR; +Florastor250 MG PO
== END | disposition home or self-care (01) ==
LOC: LAB SHORT 13:30 → LAB EV 13:30
DX: R32 Unspecified urinary incontinence (principal)
CPT/HCPCS: 87086

== ENCOUNTER → 2019-09-20 | Outpatient (CLI) | payer MEDICARE, OTHER | END | disposition home or self-care (01) | LOC: LAB EV 10:20 → LAB SHORT 10:20 | DX: R32 Unspecified urinary incontinence (principal) | CPT/HCPCS: 87077; 87086; 87186 ==

== ENCOUNTER 2021-11-29 00:56 | Inpatient (IN) | payer MEDICARE, OTHER ==
[~2021-11-29] VITALS: Ht 157.5 cm; Wt 106.0 kg
[~2021-11-29 00:56] MED LIST changes: +CYMBALTA20 M2 PO; +METO50ER PO; +POTA20PAC
[2021-11-29 01:25] LABS: BASOPHILS ABSOLUTE AUTO 0.06 K/mm3 (0.00-0.23); BASOPHILS PERCENT AUTO 1 % (0-2); EOSINOPHILS ABSOLUTE AUTO 0.27 K/mm3 (0.00-0.68); EOSINOPHILS PERCENT AUTO 3 % (0-6); Hematocrit 48.9 % (33.0-51.0); IMMATURE GRAN ABSOLUTE AUTO 0.03 K/mm3 (0.00-0.10); IMMATURE GRAN PERCENT AUTO 0 % (0-1); LYMPHOCYTES ABSOLUTE AUTO 2.75 K/mm3 (0.84-5.20); LYMPHOCYTES PERCENT AUTO 28 % (21-46); MONOCYTES ABSOLUTE AUTO 0.63 K/mm3 (0.16-1.47); MONOCYTES PERCENT AUTO 6 % (4-13); Mean Corpuscular HGB 31.7 pg (26.0-34.0); Mean Corpuscular HGB Conc 32.7 g/dL (31.5-36.5); Mean Corpuscular Volume 97 fL (80-100); Mean Platelet Volume 10.1 fL (9.1-12.4); NEUTROPHILS ABSOLUTE AUTO 6.12 K/mm3 (1.96-9.15); NEUTROPHILS PERCENT AUTO 62 % (41-73); Platelet Count 208 K/mm3 (150-400); RDW Coefficient Variation 13.9 % (11.7-14.2); RDW Standard Deviation 49.9 fL (35.1-46.3); Red Blood Cell Count 5.05 M/mm3 (3.80-5.20); White Blood Cell Count 9.86 K/mm3 (4.00-11.30)
[2021-11-29 01:43] LABS: Albumin, Blood 3.5 g/dL (3.4-5.0); Albumin/Globulin Ratio 0.8 (0.8-1.8); Bilirubin, Total 0.6 mg/dL (0.1-1.0); Bun/Creatinine Ratio 16.8 (12.0-20.0); Calcium, Blood 10.1 mg/dL (8.5-10.1); Creatinine, Blood 0.95 mg/dL (0.40-1.00); Globulin, Blood 4.2 g/dL (2.2-4.0); Magnesium, Blood 1.9 mg/dL (1.6-2.4); Potassium, Blood 4.1 mmol/L (3.5-5.5); Total Protein, Blood 7.7 g/dL (6.4-8.2)
[2021-11-29 02:06] LABS: Source, Urine Straight Cath
[2021-11-29 02:08] LABS: Bilirubin, Urine Neg (Neg); Blood, Urine 3+ (Neg); Glucose Qualitative, Urine Neg (Neg); Ketones, Urine 1+ (Neg); Leukocyte Esterase, Urine 3+ (Neg); Nitrite, Urine Pos (Neg); Protein, Urine 2+ (Neg); Urobilinogen, Urine 1+ (Normal)
[2021-11-29 02:10] LABS: Appearance, Urine Cloudy (Clear); Color, Urine Yellow (P-Yellow)
[2021-11-29 02:15] LABS: Bacteria Many /hpf; Red Blood Cells, Urine 0-2 /hpf (0-2); Squamous Epithelial Cells Rare /hpf (Few); White Blood Cells, Urine TNTC /hpf (0-5)
--- NOTE | 2021-11-29 05:52 | NUR ---
ADMIT NOTE 81 YR OLD FEMALE ADMITTED TO FLOOR FROM THE ED WITH DX OF SOB. HX MRSA. ON O2 AT 3L/MIN PER NC. VSS. ALERT BUT TIRED. WILL HAVE AM RN F/U WITH MEDICATION HX SHE VOICED UNSURENESS AT THIS TIME. PLACED ON TELE - MED TELE BBB WITH AN ELONGATED QT PAUSE. ASYMPTOMATIC. DENIES PAIN. VOICED FEELING COLD, WARM BLANKET APPLIED. ORIENTED TO USE OF CALL LIGHT. CALL LIGHT IN REACH. ISOLATIONP RECAUTIONS INITIATED. NPO AT THIS TIME.
--- NOTE | 2021-11-29 07:30 | NUR ---
RN NOTE PT LYING IN BED, +SOB TALKING IN SHORT SENTENCES ON 3L NC. DENIES ANY PAIN. POOR MOBILITY. SKIN NOT BROKEN DOWN BUT IN POOR CONDITION WITH SCABS, RASHES AND EXCORIATED AREAS. +ODOR TO SKIN. INCONT OF URINE. SHE SAID SHE LIVES AT HOME WITH 2 ADULT SONS. USES A W/C AT HOME, WORRIES ABOUT FALLING WHEN TRANSFERING TO W/C. INCONT AND CONT URINE AT HOME, CHANGES SHEETS FREQUENTLY AND SONS WASH THEM. HAS NOTICED A GENERAL DECLINE IN STRENGTH OVER THE LAST 2 OR MORE WEEKS. ORIENTATED TO QUESTIONS. BED LOW, CALL LIGHT IN REACH.
[2021-11-29 16:26] LABS: Anti-Xa UFH, PHA Monitoring <0.10 IU/mL; International Normalized Ratio 1.09; Prothrombin Time Results 11.4 Sec (9.7-11.5)
--- NOTE | 2021-11-29 19:42 | NUR ---
SHIFT SUMMARY MS MATHEW HAD NO C/O ANY CHEST PAIN TODAY. TROP WAS ELEVATED. ASA GIVEN AND HEPARIN GTT STARTED. ECG DONE AND PLANS FOR NPO P MN FOR CARDIAC CATHETERISATION TOMORROW. PRESSURE TANK OPERATOR REPORTED 2 RUNS OF TRIGEMINY DURING WHICH TIME SHE WAS ASYMPTOMATIC. (MD INFORMED) SHE HAS BEEN ON 3L O2 N/C ALL DAY. UNMEASURABLE UOP INCONTINENT LARGE VOLUMES. SKIN IS EXCORIATED, DRY AND FLAKEY IN MANY AREA. BED BATH DONE, PT HAD POOR BODY ODOR AND A LOT OF DIRT ON HER SKIN THAT HAD TO BE SCRUBBED OFF. SHE SAID THAT SHE HAS TROUBLE TAKING CARE OF HER HYGIENE NEEDS AT HOME AND HER SONS HELP HER. SHE DOES NOT HAVE ANY OUTSIDE HOME CARE SERVICES/ ASSISTANCE. HER SONS CAME TO VISIT HER AND SEEM VERY THOUGHTFUL AND CARING. THEY HAD GOOD KNOWLEDGE OF HER MEDICATIONS, BUT DID SAY THAT THEY HAD REDUCED HER BUMEX DOSE IN HALF DUE TO FEAR OF PT FALLING WHEN SHE HAD TO URINATE SO OFTEN. TWO PERSON MAXIMUM ASSIST TO TURN. UNFORTUNATELY THE LIFT WAS UNAVAILABLE TODAY TO GET HER UP TO THE CHAIR BUT SHE WOULD LIKE TO GET UP OUT OF BED WHEN IT BECOMES AVAILABLE. BED LOW. CALL LIGHT IN REACH.
--- NOTE | 2021-11-29 21:54 | NUR ---
NOTE PT STS THAT THE BATH THAT SHE WAS GIVEN EARLIER TODAY MADE HER SKIN DRY AND IRRITABLE. PT GIVEN TYLENOL PER HER REQUEST AND LOTION APPLIED TO FEET, LEGS, AND BACK.
[2021-11-29 21:56] LABS: Influenza A, PCR NEGATIVE (NEGATIVE); Influenza B, PCR NEGATIVE (NEGATIVE); Resp Syncytial Virus, PCR NEGATIVE (NEGATIVE); SARS-Cov-2 (COVID-19) PCR, MMC NEGATIVE (NEGATIVE)
[2021-11-30 00:25] LABS: BASOPHILS ABSOLUTE AUTO 0.05 K/mm3 (0.00-0.23); BASOPHILS PERCENT AUTO 1 % (0-2); EOSINOPHILS ABSOLUTE AUTO 0.29 K/mm3 (0.00-0.68); EOSINOPHILS PERCENT AUTO 4 % (0-6); Hematocrit 41.3 % (33.0-51.0); Hemoglobin 13.6 g/dL (11.5-16.0); IMMATURE GRAN ABSOLUTE AUTO 0.02 K/mm3 (0.00-0.10); IMMATURE GRAN PERCENT AUTO 0 % (0-1); LYMPHOCYTES ABSOLUTE AUTO 1.65 K/mm3 (0.84-5.20); LYMPHOCYTES PERCENT AUTO 21 % (21-46); MONOCYTES ABSOLUTE AUTO 0.54 K/mm3 (0.16-1.47); MONOCYTES PERCENT AUTO 7 % (4-13); Mean Corpuscular HGB 31.9 pg (26.0-34.0); Mean Corpuscular HGB Conc 32.9 g/dL (31.5-36.5); Mean Corpuscular Volume 97 fL (80-100); Mean Platelet Volume 10.2 fL (9.1-12.4); NEUTROPHILS ABSOLUTE AUTO 5.42 K/mm3 (1.96-9.15); NEUTROPHILS PERCENT AUTO 68 % (41-73); Platelet Count 167 K/mm3 (150-400); RDW Coefficient Variation 13.9 % (11.7-14.2); RDW Standard Deviation 49.9 fL (35.1-46.3); Red Blood Cell Count 4.26 M/mm3 (3.80-5.20); White Blood Cell Count 7.97 K/mm3 (4.00-11.30)
[2021-11-30 00:43] LABS: Albumin, Blood 2.7 g/dL (3.4-5.0); Anion Gap 4 mmol/L (6-16); Blood Urea Nitrogen 14 mg/dL (8-24); Bun/Creatinine Ratio 16.1 (12.0-20.0); CO2, Blood 32 mmol/L (21-32); Calcium, Blood 9.2 mg/dL (8.5-10.1); Chloride, Blood 107 mmol/L (98-108); Creatinine, Blood 0.87 mg/dL (0.40-1.00); Glomerular Filtration Rate 66 (60-); Glucose, Blood 111 mg/dL (70-99); Magnesium, Blood 1.9 mg/dL (1.6-2.4); Phosphorus, Blood 3.4 mg/dL (2.5-4.9); Potassium, Blood 4.2 mmol/L (3.5-5.5); Sodium, Blood 143 mmol/L (136-145)
--- NOTE | 2021-11-30 04:53 | NUR ---
SHIFT SUMMARY NO CURRENT COMPLAINTS FROM PT. PT SLEPT MUCH OF THE NIGHT. CALL LIGHT IS WITHIN HER REACH. PT COMPLAINED LAST NIGHT OF SOME ARTHRITIC KNEE PAINS AND WAS MEDICATED PER EMAR. PT WAS ALSO COMPLAINING OF ITCHY, DRY SKIN. LOTION WAS APPLIED AND THERE HAVE BEEN NO FURTHER ISSUES. PT HAS CALL LIGHT WITHIN HER REACH.
--- NOTE | 2021-11-30 07:15 | NUR ---
spoke with Dr. Valles turned off heperin per his instructions, will keep npo, will be going to the wharf laborer soon, call light in reach.
--- NOTE | 2021-11-30 10:38 | NUR ---
Transer note Received telephone report from butch Waters on medical; bedside report from yard labor supervisor. Pt alert, oriented x4, calm and cooperative with care. Pt resting in bed. Pt denies pain, chest pain/pressure, sob, nausea, dizziness and numb/tingling. TR band in place to right radial, no bleeding, bruising, and hematoma. Tele sinus annamaria to sinus 50-60's bp stable. Spo2 >90% on 3l o2 via nc, 2l o2 baseline, breathing even and unlabored, LS clear with dim bases. Ble red with scattered scabs, 3+ pitting edema noted. Other vss. No other acute changes noted. Will continue to monitor. Plans for possible [facility] transfer. New orders from Dr Valles to continue heparin once TR band is removed.
--- NOTE | 2021-11-30 17:41 | NUR ---
Shift Summary Right radial site recovered per protocol, slight bruising noted above where tr band placement, arm board in place. Pt restarted on heparin per orders. Spo2 >94% on 3l o2 via nc, titrated to home dose at 2l o2 via nc. Other vss. No other acute changes noted. Plans to [facility] transfer patient to [facility] tomorrow.
--- NOTE | 2021-11-30 23:00 | NUR ---
PT UPDATE CALL FROM [facility] PHARMACIST, HEPARIN LEVEL IS AT BASELINE, PHARMACIST CONCERNED FOR HEPARIN INFUSION. THIS RN BACK TO BEDSIDE TO REASSESS LINE AND TO ENSURE PATENCY. AREA OF WARMNESS AND SWELLING BELOW LINE IN SUBCUTANEOUS TISSUE. POWERLGIDE DC D/T INFILTRATION. [facility] PHARMACIST NOTIFIED. ORDER TO CONTINUE HEPARIN AT PRIOR RATE ONCE NEW LINE IS ESTABLISHED.
[2021-12-01 06:32] LABS: BASOPHILS ABSOLUTE AUTO 0.03 K/mm3 (0.00-0.23); BASOPHILS PERCENT AUTO 1 % (0-2); EOSINOPHILS PERCENT AUTO 5 % (0-6); Hematocrit 42.3 % (33.0-51.0); Hemoglobin 13.5 g/dL (11.5-16.0); IMMATURE GRAN ABSOLUTE AUTO 0.01 K/mm3 (0.00-0.10); IMMATURE GRAN PERCENT AUTO 0 % (0-1); LYMPHOCYTES ABSOLUTE AUTO 1.22 K/mm3 (0.84-5.20); LYMPHOCYTES PERCENT AUTO 21 % (21-46); MONOCYTES ABSOLUTE AUTO 0.46 K/mm3 (0.16-1.47); MONOCYTES PERCENT AUTO 8 % (4-13); Mean Corpuscular HGB 31.3 pg (26.0-34.0); Mean Corpuscular HGB Conc 31.9 g/dL (31.5-36.5); Mean Corpuscular Volume 98 fL (80-100); Mean Platelet Volume 10.5 fL (9.1-12.4); NEUTROPHILS ABSOLUTE AUTO 3.81 K/mm3 (1.96-9.15); NEUTROPHILS PERCENT AUTO 65 % (41-73); Platelet Count 150 K/mm3 (150-400); RDW Coefficient Variation 13.6 % (11.7-14.2); RDW Standard Deviation 49.2 fL (35.1-46.3); Red Blood Cell Count 4.32 M/mm3 (3.80-5.20); White Blood Cell Count 5.83 K/mm3 (4.00-11.30)
--- NOTE | 2021-12-01 06:48 | NUR ---
SHIFT SUMMARY PT AOX4, BREATHING TACHYPNEIC WHILE RESTING IN BED RR 20-24 BPM. SOME CRACKLES IN UPPER AND LOWER LOBES. PT DENIES CP. SR 70'S-80'S. HEPARIN INFILTRATED THROUGH POWERGLIDE. CONTINUED AT RATE OF 15 U/KG/HR THROUGH NEW LINE IN L HAND. NO ISSUES WITH INFUSION FOLLOWING PLACEMENT OF NEW IV. CURRENT RESULT OF HEPARIN THERAPEUTIC ORDER TO CONTINUE AT CURRENT RATE. PT R RADIAL SITE INTACT, NO CHANGE FROM START OF SHIFT. PUREWICK IN PLACE FUNCTIONING WELL AND DRAINING YELLOW URINE. PT REPOSITIONED FOR COMFORT W/STAFF ASSIST.
[2021-12-01 06:58] LABS: Bun/Creatinine Ratio 13.6 (12.0-20.0); Calcium, Blood 9.2 mg/dL (8.5-10.1); Creatinine, Blood 0.88 mg/dL (0.40-1.00); Potassium, Blood 3.9 mmol/L (3.5-5.5)
--- NOTE | 2021-12-01 10:05 | NUR ---
Report given to Karl Elizabeth and accepting patient at [facility].
--- NOTE | 2021-12-01 12:28 | NUR ---
[facility] Transfer Assumed care at 0700 this am. Pt alert, oriented x3. Pt tearful at times regarding situation. Pt reports back discomfort, states it related to lying in bed. Pt denies chest pain/pressure, sob, nasuea, dizziness and numb/tingling. Tele sinus with bbb, bp stable. Right radial site c/d/i, no bleeding or hematoma noted, small amount of brusing distal to tr band site. Spo2 >90% on 2l o2 via nc, breathing even and unlabored. Pt had redness to fold, under panis and in groin, notified Dr Hall, new orders for anti fungal powder. Heparin infusion per orders. Other vss. No other acute changes noted. Report given to RN assuming care of patient upon transfer and bedside report given to ems for transport. Pt left at 1145 with transport.
== END 2021-12-01 11:45 | disposition short-term general hospital (02) | DRG 280 ==
LOC: ER 00:56 → MEDS 04:30 → PCU 04:30 → MEDS 04:56 → PCU 11-30 09:36
PROVIDERS: Family Medicine; Internal Medicine; Student in an Organized Health Care Education/Training Program; ADMIT Internal Medicine
PROC: 4A023N7 Measurement of Cardiac Sampling and Pressure, Left Heart, Percutaneous Approach (ICD-10-PCS; principal; 2021-11-30)
PROC: B2111ZZ Fluoroscopy of Multiple Coronary Arteries using Low Osmolar Contrast (ICD-10-PCS; 2021-11-30)
DX: I21.4 Non-ST elevation (NSTEMI) myocardial infarction (principal); I50.33 Acute on chronic diastolic (congestive) heart failure; J96.01 Acute respiratory failure with hypoxia; N39.0 Urinary tract infection, site not specified; B96.1 Klebsiella pneumoniae [K. pneumoniae] as the cause of diseases classified elsewhere; Z88.5 Allergy status to narcotic agent; Z88.1 Allergy status to other antibiotic agents; Z88.8 Allergy status to other drugs, medicaments and biological substances; Z88.2 Allergy status to sulfonamides; K21.9 Gastro-esophageal reflux disease without esophagitis; Z90.710 Acquired absence of both cervix and uterus; Z90.49 Acquired absence of other specified parts of digestive tract; Z87.891 Personal history of nicotine dependence; Z79.899 Other long term (current) drug therapy
CPT/HCPCS: 0241U; 36415; 71045; 76937; 80048; 80053; 80069; 81001; 83036; 83735; 83880; 84484; 85025; 85520; 85610; 87077; 87086; 87186; 93005; 93010; 93306; 93454; 94640; 94664; 94760; 96374; 99285-25; A9270; C1769; C1887; C1894; J0696; J1644; J1940; J2250; J3010; J7030; J7040; J7050; J7060; P9612; Q9967

== ENCOUNTER 2021-12-08 18:05 | Emergency (ER) | payer MEDICARE, OTHER ==
[~2021-12-08] VITALS: Ht 157.5 cm; Wt 113.4 kg
[2021-12-08] MEDS ORDERED: Pepcid40 MG PO (20:27)
== END 2021-12-08 21:11 | disposition home or self-care (01) ==
LOC: ER 18:05
DX: L29.9 Pruritus, unspecified (principal); T36.95XA Adverse effect of unspecified systemic antibiotic, initial encounter; I12.9 Hypertensive chronic kidney disease with stage 1 through stage 4 chronic kidney disease, or unspecified chronic kidney disease; N18.2 Chronic kidney disease, stage 2 (mild); K21.9 Gastro-esophageal reflux disease without esophagitis; Z79.899 Other long term (current) drug therapy; Z88.5 Allergy status to narcotic agent; Z88.8 Allergy status to other drugs, medicaments and biological substances; Z86.73 Personal history of transient ischemic attack (TIA), and cerebral infarction without residual deficits; Z87.891 Personal history of nicotine dependence
CPT/HCPCS: A9270

== ENCOUNTER 2022-01-13 09:04 | Inpatient (IN) | payer MEDICARE, OTHER ==
[~2022-01-13] VITALS: Ht 157.5 cm; Wt 99.8 kg
[~2022-01-13 09:04] MED LIST changes: +Pepcid40 MG PO
[2022-01-13 09:59] LABS: BASOPHILS ABSOLUTE AUTO 0.03 K/mm3 (0.00-0.23); BASOPHILS PERCENT AUTO 0 % (0-2); EOSINOPHILS PERCENT AUTO 0 % (0-6); Hematocrit 40.7 % (33.0-51.0); Hemoglobin 14.2 g/dL (11.5-16.0); IMMATURE GRAN ABSOLUTE AUTO 0.13 K/mm3 (0.00-0.10); IMMATURE GRAN PERCENT AUTO 1 % (0-1); LYMPHOCYTES ABSOLUTE AUTO 0.47 K/mm3 (0.84-5.20); LYMPHOCYTES PERCENT AUTO 3 % (21-46); MONOCYTES ABSOLUTE AUTO 1.02 K/mm3 (0.16-1.47); MONOCYTES PERCENT AUTO 6 % (4-13); Mean Corpuscular HGB 32.3 pg (26.0-34.0); Mean Corpuscular HGB Conc 34.9 g/dL (31.5-36.5); Mean Corpuscular Volume 93 fL (80-100); Mean Platelet Volume 10.5 fL (9.1-12.4); NEUTROPHILS ABSOLUTE AUTO 14.54 K/mm3 (1.96-9.15); NEUTROPHILS PERCENT AUTO 90 % (41-73); Platelet Count 196 K/mm3 (150-400); RDW Coefficient Variation 13.5 % (11.7-14.2); RDW Standard Deviation 46.5 fL (35.1-46.3); Red Blood Cell Count 4.39 M/mm3 (3.80-5.20); White Blood Cell Count 16.19 K/mm3 (4.00-11.30)
[2022-01-13 10:06] LABS: Albumin, Blood 2.7 g/dL (3.4-5.0); Albumin/Globulin Ratio 0.6 (0.8-1.8); Bilirubin, Total 2.7 mg/dL (0.1-1.0); Bun/Creatinine Ratio 24.8 (12.0-20.0); Creatinine, Blood 1.13 mg/dL (0.40-1.00); Globulin, Blood 4.5 g/dL (2.2-4.0); Potassium, Blood 2.8 mmol/L (3.5-5.5); Total Protein, Blood 7.2 g/dL (6.4-8.2)
[2022-01-13 11:50] LABS: Source, Urine Clean Catch
[2022-01-13 11:54] LABS: Appearance, Urine Turbid (Clear); Blood, Urine 5+ (Neg); Color, Urine Yellow (P-Yellow); Glucose Qualitative, Urine Neg (Neg); Ketones, Urine Neg (Neg); Leukocyte Esterase, Urine 3+ (Neg); Nitrite, Urine Neg (Neg); Protein, Urine 3+ (Neg); Urobilinogen, Urine 2+ (Normal)
[2022-01-13 12:08] LABS: Bilirubin, Urine 1+ (Neg)
[2022-01-13 12:10] LABS: White Blood Cells, Urine TNTC /hpf (0-5)
[2022-01-13 12:11] LABS: Bacteria Many /hpf; Squamous Epithelial Cells Rare /hpf (Few)
[2022-01-13 12:32] LABS: Influenza A, PCR NEGATIVE (NEGATIVE); Influenza B, PCR NEGATIVE (NEGATIVE); Resp Syncytial Virus, PCR NEGATIVE (NEGATIVE); SARS-Cov-2 (COVID-19) PCR, MMC NEGATIVE (NEGATIVE)
[2022-01-13] MEDS ORDERED: ASPIR 8181 M1 PO (13:28)
[2022-01-13] MEDS ORDERED: ATOR40TA PO (13:28)
[2022-01-13] MEDS ORDERED: BUME2 PO (13:29)
[2022-01-13] MEDS ORDERED: CLOP75 PO (13:29)
[2022-01-13 17:32] LABS: Source, Urine Nephrostomy
[2022-01-13 17:40] LABS: Appearance, Urine Bloody (Clear); Bilirubin, Urine Neg (Neg); Blood, Urine 5+ (Neg); Color, Urine Red (P-Yellow); Glucose Qualitative, Urine Neg (Neg); Ketones, Urine 1+ (Neg); Leukocyte Esterase, Urine 3+ (Neg); Nitrite, Urine Neg (Neg); Protein, Urine 4+ (Neg); Urobilinogen, Urine NORM (Normal)
[2022-01-13 17:58] LABS: Red Blood Cells, Urine TNTC /hpf (0-2); White Blood Cells, Urine TNTC /hpf (0-5)
[2022-01-13 17:59] LABS: Bacteria Many /hpf; Squamous Epithelial Cells Few /hpf (Few)
[2022-01-13 18:00] LABS: Granular Casts 0-2 /lpf (0); Hyaline Casts 0-2 /lpf (0-2); Transitional Epithelial Cells Rare /hpf (0-Rare); WBC Cast 0-2 /lpf (0)
--- NOTE | 2022-01-13 18:29 | NUR ---
SHIFT SUMMARY PATIENT IS ALERT BUT CONFUSED. PATIENT SETTLED. POTASSIUM IS RUNNING. PATIENT IS ADMITTED FOR UTI. PATIENT HAS NOT COMPLAINED OF PAIN, NAUSEA, SOB OR VOMITTING. PATIENTS SON IS WITH PATIENT. WILL MONITOR UNTIL SHIFT CHANGE.
[2022-01-13 18:30] LABS: Bun/Creatinine Ratio 22.5 (12.0-20.0); Calcium, Blood 9.7 mg/dL (8.5-10.1); Creatinine, Blood 1.2 mg/dL (0.40-1.00); Potassium, Blood 3.5 mmol/L (3.5-5.5)
--- NOTE | 2022-01-14 04:34 | NUR ---
Patient resting in bed at this time, diffucult to turn patient in bed as patient will not assist.
[2022-01-14 05:27] LABS: Hematocrit 38.5 % (33.0-51.0); Hemoglobin 12.7 g/dL (11.5-16.0); Mean Corpuscular HGB 32.1 pg (26.0-34.0); Mean Corpuscular Volume 97 fL (80-100); Mean Platelet Volume 11.1 fL (9.1-12.4); Platelet Count 145 K/mm3 (150-400); RDW Standard Deviation 50.4 fL (35.1-46.3); Red Blood Cell Count 3.96 M/mm3 (3.80-5.20); White Blood Cell Count 10.85 K/mm3 (4.00-11.30)
[2022-01-14 05:45] LABS: Albumin, Blood 2.2 g/dL (3.4-5.0); Albumin/Globulin Ratio 0.6 (0.8-1.8); Bun/Creatinine Ratio 24.4 (12.0-20.0); Calcium, Blood 9.4 mg/dL (8.5-10.1); Creatinine, Blood 1.19 mg/dL (0.40-1.00); Globulin, Blood 3.8 g/dL (2.2-4.0); Potassium, Blood 3.5 mmol/L (3.5-5.5)
--- NOTE | 2022-01-14 16:25 | NUR ---
SHIFT SUMMARY PATIENT IS ALERT AND ORIENTED TO SELF AND FAMILY. PATIENT HAS HAD NO ACUTE EVENTS THIS SHIFT. VITAL SIGNS REVIEWED. SON VISITED THIS SHIFT WITH NO CONCERNS. PATIENT SEEMS MORE ALERT AND ORIENTED THAN LAST SHIFT. PATIENTS SON BROUGHT IN MISSING HEARING AID, WHICH AIDS PT GREATLY. PATIENT HAS NOT COMPLAINED OF PAIN, SOB, NAUSEA, VOMITTING. BED IN LOCKED AND LOWEST POSITION. CALL LIGHT IN PLACE. WILL MONITOR UNTIL SHIFT CHANGE.
--- NOTE | 2022-01-15 05:01 | NUR ---
Patient slightly more alert, new IV placed earlier this shift, tolerated well.
[2022-01-15 06:51] LABS: BASOPHILS ABSOLUTE AUTO 0.02 K/mm3 (0.00-0.23); BASOPHILS PERCENT AUTO 0 % (0-2); EOSINOPHILS ABSOLUTE AUTO 0.72 K/mm3 (0.00-0.68); EOSINOPHILS PERCENT AUTO 8 % (0-6); Hematocrit 39.1 % (33.0-51.0); IMMATURE GRAN ABSOLUTE AUTO 0.04 K/mm3 (0.00-0.10); IMMATURE GRAN PERCENT AUTO 0 % (0-1); LYMPHOCYTES ABSOLUTE AUTO 0.73 K/mm3 (0.84-5.20); LYMPHOCYTES PERCENT AUTO 8 % (21-46); MONOCYTES ABSOLUTE AUTO 0.78 K/mm3 (0.16-1.47); MONOCYTES PERCENT AUTO 8 % (4-13); Mean Corpuscular HGB 32.6 pg (26.0-34.0); Mean Corpuscular HGB Conc 33.2 g/dL (31.5-36.5); Mean Corpuscular Volume 98 fL (80-100); Mean Platelet Volume 11.4 fL (9.1-12.4); NEUTROPHILS ABSOLUTE AUTO 7.01 K/mm3 (1.96-9.15); NEUTROPHILS PERCENT AUTO 76 % (41-73); Platelet Count 181 K/mm3 (150-400); RDW Coefficient Variation 13.9 % (11.7-14.2); RDW Standard Deviation 50.7 fL (35.1-46.3); Red Blood Cell Count 3.99 M/mm3 (3.80-5.20)
[2022-01-15 07:15] LABS: Calcium, Blood 9.6 mg/dL (8.5-10.1); Creatinine, Blood 0.97 mg/dL (0.40-1.00); Potassium, Blood 3.7 mmol/L (3.5-5.5)
--- NOTE | 2022-01-15 17:37 | NUR ---
SHIFT SUMMARY: NO NEW CHANGES THIS SHIFT. PATIENT A&OX3-4 AND SLIGHTLY MILLE LACS. PLEASANT AND COOPERATIVE WITH CARE. USES CALL LIGHT APROPRIATELY AND ABLE TO ADVOCATE FOR HER NEEDS. PATIENT WAS ABLE TO PARTICIPATE WITH PT THIS AM. INCONTINENCE OF URINE, ATTENDS PLACE AND CHANGED T/O SHIFT. RECEIVED SCHEDULED ANTIBIOTICS. PATIENT DENIES PAIN, SOB, N/V THIS SHIFT. VITAL SIGNS REVIEWED. BED IN LOWEST POSITION, LOCKED AND BED ALARM ON FOR SAFETY. CALL LIGHT IN REACH.
--- NOTE | 2022-01-16 03:26 | NUR ---
Patient resting at this time, cream has helped with itching of skin.
--- NOTE | 2022-01-16 08:00 | NUR ---
Pt laying in bed awake watching tv, was changed, a/ox3, pleasant and cooperative with care, follows commands well, denies pain, lungs are clear t/o, on r/a, resp even and unlabored, briefs in place, skin c/w/d, weak, knight, isn't wanting to take her abx due to itching it causes, will notify Dr. estelita church in reach.
--- NOTE | 2022-01-16 18:03 | NUR ---
pt has been repositioned throughout this shift, with a complete bed change, no acute changes in condition, visitor in room assisting her with dinner, call light in reach.
--- NOTE | 2022-01-17 03:39 | NUR ---
SHIFT SUMMARY NO OVERNIGHT EVENTS. DENIES ANY SOB/PAIN/ SIGNS OF DISTRESS. ABLE TO MAKE NEEDS KNOWN, NOTED PT TO BE FORGETFUL THIS EVENING. REMAINS IN BED, [id number], INCONTINENCE PAD CHANGED NEEDED. R NEPHROSTOMY TUBE IN PLACE, DRAINING SEROSANGINEOUS DRAINAGE. CALL LIGHT IN REACH. WILL CONTINUE TO MONITOR.
[2022-01-17 06:39] LABS: BASOPHILS ABSOLUTE AUTO 0.03 K/mm3 (0.00-0.23); BASOPHILS PERCENT AUTO 0 % (0-2); EOSINOPHILS ABSOLUTE AUTO 0.91 K/mm3 (0.00-0.68); EOSINOPHILS PERCENT AUTO 10 % (0-6); Hematocrit 38.9 % (33.0-51.0); Hemoglobin 13.2 g/dL (11.5-16.0); IMMATURE GRAN ABSOLUTE AUTO 0.08 K/mm3 (0.00-0.10); IMMATURE GRAN PERCENT AUTO 1 % (0-1); LYMPHOCYTES ABSOLUTE AUTO 1.22 K/mm3 (0.84-5.20); LYMPHOCYTES PERCENT AUTO 14 % (21-46); MONOCYTES ABSOLUTE AUTO 0.97 K/mm3 (0.16-1.47); MONOCYTES PERCENT AUTO 11 % (4-13); Mean Corpuscular HGB 32.1 pg (26.0-34.0); Mean Corpuscular HGB Conc 33.9 g/dL (31.5-36.5); Mean Corpuscular Volume 95 fL (80-100); Mean Platelet Volume 10.6 fL (9.1-12.4); NEUTROPHILS ABSOLUTE AUTO 5.71 K/mm3 (1.96-9.15); NEUTROPHILS PERCENT AUTO 64 % (41-73); Platelet Count 209 K/mm3 (150-400); RDW Coefficient Variation 13.2 % (11.7-14.2); RDW Standard Deviation 46.2 fL (35.1-46.3); Red Blood Cell Count 4.11 M/mm3 (3.80-5.20); White Blood Cell Count 8.92 K/mm3 (4.00-11.30)
[2022-01-17 06:40] LABS: Bun/Creatinine Ratio 25.1 (12.0-20.0); Calcium, Blood 9.4 mg/dL (8.5-10.1); Creatinine, Blood 0.88 mg/dL (0.40-1.00); Potassium, Blood 3.2 mmol/L (3.5-5.5)
--- NOTE | 2022-01-17 08:00 | NUR ---
pt laying in bed awake a/ox3, forgetful at times, cooperative with care, follows commands well, reports her inner thigh is painful, will repostion soon, lungs are clear dim in bases, on 2 liters 02 via n/c, resp even and unlabored, no cough noted, hrr, no edema noted, ppp +1, cap refill <3 sec, vs stable, afebrile, iv site to rfa is clear and patent, s.l., btx4, abd flat soft nontender, incont of urine and stool, briefs in place, skin is pink, less than yesterday, very dry and itchy, bottom is excoriated, moves upper ext well, takes po meds without diff, is a two person to turn in bed. call light in reach.
--- NOTE | 2022-01-17 18:18 | NUR ---
medicated with tylenol for pain several times today, pt voids so much volume at once purwick was placed this evening to protect her skin, has been repositioned throughout the day, no further changes this shift, call light in reach.
--- NOTE | 2022-01-18 03:45 | NUR ---
SHIFT SUMMARY NO OVERNIGHT EVENTS. PT SLEPT WELL. DENIES ANY S/S OF DISTRESS. PUREWICK IN PLACE, CONTINUING [id number]. R NEPHROMOSTOMY TUBE DRAINGING SEROSANGINEOUS FLUIDS. PT ABLE TO USE CALL LIGHT. WILL CONTINUE TO MONITOR.
[2022-01-18 05:05] LABS: BASOPHILS ABSOLUTE AUTO 0.04 K/mm3 (0.00-0.23); BASOPHILS PERCENT AUTO 0 % (0-2); EOSINOPHILS ABSOLUTE AUTO 1.02 K/mm3 (0.00-0.68); EOSINOPHILS PERCENT AUTO 11 % (0-6); Hematocrit 40.5 % (33.0-51.0); Hemoglobin 13.5 g/dL (11.5-16.0); IMMATURE GRAN ABSOLUTE AUTO 0.14 K/mm3 (0.00-0.10); IMMATURE GRAN PERCENT AUTO 2 % (0-1); LYMPHOCYTES ABSOLUTE AUTO 1.86 K/mm3 (0.84-5.20); LYMPHOCYTES PERCENT AUTO 20 % (21-46); MONOCYTES ABSOLUTE AUTO 0.87 K/mm3 (0.16-1.47); MONOCYTES PERCENT AUTO 9 % (4-13); Mean Corpuscular HGB 31.8 pg (26.0-34.0); Mean Corpuscular HGB Conc 33.3 g/dL (31.5-36.5); Mean Corpuscular Volume 95 fL (80-100); Mean Platelet Volume 10.4 fL (9.1-12.4); NEUTROPHILS ABSOLUTE AUTO 5.34 K/mm3 (1.96-9.15); NEUTROPHILS PERCENT AUTO 58 % (41-73); Platelet Count 235 K/mm3 (150-400); RDW Coefficient Variation 13.2 % (11.7-14.2); RDW Standard Deviation 46.9 fL (35.1-46.3); Red Blood Cell Count 4.25 M/mm3 (3.80-5.20); White Blood Cell Count 9.27 K/mm3 (4.00-11.30)
[2022-01-18 05:27] LABS: Bun/Creatinine Ratio 24.8 (12.0-20.0); Calcium, Blood 9.5 mg/dL (8.5-10.1); Creatinine, Blood 0.89 mg/dL (0.40-1.00); Potassium, Blood 3.4 mmol/L (3.5-5.5)
--- NOTE | 2022-01-18 18:33 | NUR ---
SHIFT SUMMARY PT A/O X3; PLEASANT AND COOPERATIVE WITH CARE. NO ACUTE CHANGES THIS SHIFT. PT REMAINS VERY WEAK AND BEDBOUND. OINTMENT APPLIED TO RASH ON ARMS AND BACK. PT C/O PAIN IN HER BUTTOCKS; REPOSITIONED AND MEDICATED PER EMR. VSS.
--- NOTE | 2022-01-19 03:36 | NUR ---
SHIFT SUMMARY NO OVERNIGTH EVENTS. CONTINUING [id number]. PT INCONINENT OF URINE. R NEPHROSTOMY TUBE DRAING SEROSANGENIOUS DRAINGE. DENIES ANY PAIN/SOB. ABLE TO MAKE NEEDS KNOWN. WILL CONTINUE TO MONITOR.
[2022-01-19 06:11] LABS: BASOPHILS ABSOLUTE AUTO 0.08 K/mm3 (0.00-0.23); BASOPHILS PERCENT AUTO 1 % (0-2); EOSINOPHILS ABSOLUTE AUTO 1.18 K/mm3 (0.00-0.68); EOSINOPHILS PERCENT AUTO 12 % (0-6); Hematocrit 40.8 % (33.0-51.0); Hemoglobin 13.8 g/dL (11.5-16.0); IMMATURE GRAN PERCENT AUTO 2 % (0-1); LYMPHOCYTES ABSOLUTE AUTO 1.89 K/mm3 (0.84-5.20); LYMPHOCYTES PERCENT AUTO 19 % (21-46); MONOCYTES ABSOLUTE AUTO 0.75 K/mm3 (0.16-1.47); MONOCYTES PERCENT AUTO 7 % (4-13); Mean Corpuscular HGB 32.5 pg (26.0-34.0); Mean Corpuscular HGB Conc 33.8 g/dL (31.5-36.5); Mean Corpuscular Volume 96 fL (80-100); Mean Platelet Volume 10.1 fL (9.1-12.4); NEUTROPHILS ABSOLUTE AUTO 6.08 K/mm3 (1.96-9.15); NEUTROPHILS PERCENT AUTO 60 % (41-73); Platelet Count 252 K/mm3 (150-400); RDW Coefficient Variation 13.5 % (11.7-14.2); RDW Standard Deviation 47.8 fL (35.1-46.3); Red Blood Cell Count 4.24 M/mm3 (3.80-5.20); White Blood Cell Count 10.18 K/mm3 (4.00-11.30)
[2022-01-19 06:28] LABS: Albumin, Blood 2.5 g/dL (3.4-5.0); Anion Gap 3 mmol/L (6-16); Blood Urea Nitrogen 18 mg/dL (8-24); Bun/Creatinine Ratio 19.2 (12.0-20.0); CO2, Blood 37 mmol/L (21-32); Calcium, Blood 9.3 mg/dL (8.5-10.1); Chloride, Blood 101 mmol/L (98-108); Creatinine, Blood 0.94 mg/dL (0.40-1.00); Glomerular Filtration Rate 61 (60-); Glucose, Blood 108 mg/dL (70-99); Magnesium, Blood 1.6 mg/dL (1.6-2.4); Phosphorus, Blood 2.6 mg/dL (2.5-4.9); Potassium, Blood 3.7 mmol/L (3.5-5.5); Sodium, Blood 141 mmol/L (136-145)
[2022-01-19] MEDS ORDERED: LEVO750 PO (12:49)
[2022-01-19] MEDS ORDERED: POTCHL20ER PO (12:49)
[2022-01-19 13:19] LABS: Influenza A, PCR NEGATIVE (NEGATIVE); Influenza B, PCR NEGATIVE (NEGATIVE); Resp Syncytial Virus, PCR NEGATIVE (NEGATIVE); SARS-Cov-2 (COVID-19) PCR, MMC NEGATIVE (NEGATIVE)
--- NOTE | 2022-01-19 15:00 | NUR ---
DISCHARGE NOTE: PT A&O X4, PLEASANT AND COOPERATIVE. PT EVALUATED BY PT/OT, PT 1-2 PERSON ASSIST WITH FWW AND GAIT BELT. PT PACKED BY MELITON SALAZAR. PT SON WAS PRESENT DURING DISCHARGE AND [facility]. REPORT GIVEN TO NURSE WALLACE. PT TRANSPORTED VIA WC TO [facility] BY LINE RUNNER. PT IV WAS IN PLACE AND REPORTED TO NURSE WALLACE. CHARGE NURSE BRITTNY NOTIFIED.
== END 2022-01-19 15:00 | DRG 871 ==
LOC: ER 09:04 → MEDS 14:23
PROVIDERS: Emergency Medicine; Family Medicine; Radiology Diagnostic Radiology; ADMIT Internal Medicine
PROC: 0T9030Z Drainage of Right Kidney with Drainage Device, Percutaneous Approach (ICD-10-PCS; principal; 2022-01-13)
PROC: BT41ZZZ Ultrasonography of Right Kidney (ICD-10-PCS; 2022-01-13)
PROC: BT11YZZ Fluoroscopy of Right Kidney using Other Contrast (ICD-10-PCS; 2022-01-13)
PROC: 3E03329 Introduction of Other Anti-infective into Peripheral Vein, Percutaneous Approach (ICD-10-PCS; 2022-01-13)
DX: A41.59 Other Gram-negative sepsis (principal); G92.9 Unspecified toxic encephalopathy; N17.0 Acute kidney failure with tubular necrosis; N13.6 Pyonephrosis; I13.0 Hypertensive heart and chronic kidney disease with heart failure and stage 1 through stage 4 chronic kidney disease, or unspecified chronic kidney disease; I50.32 Chronic diastolic (congestive) heart failure; R29.810 Facial weakness; M10.9 Gout, unspecified; F32.A Depression, unspecified; E78.5 Hyperlipidemia, unspecified; I27.20 Pulmonary hypertension, unspecified; L71.9 Rosacea, unspecified; I25.10 Atherosclerotic heart disease of native coronary artery without angina pectoris; E87.6 Hypokalemia; K21.9 Gastro-esophageal reflux disease without esophagitis; N18.2 Chronic kidney disease, stage 2 (mild); M85.80 Other specified disorders of bone density and structure, unspecified site; Z20.822 Contact with and (suspected) exposure to COVID-19; Z90.49 Acquired absence of other specified parts of digestive tract; Z90.710 Acquired absence of both cervix and uterus; Z88.5 Allergy status to narcotic agent; Z88.0 Allergy status to penicillin; Z88.8 Allergy status to other drugs, medicaments and biological substances; Z86.73 Personal history of transient ischemic attack (TIA), and cerebral infarction without residual deficits; Z95.5 Presence of coronary angioplasty implant and graft; I25.2 Old myocardial infarction; Z88.2 Allergy status to sulfonamides; Z79.899 Other long term (current) drug therapy; Z87.891 Personal history of nicotine dependence; Z79.82 Long term (current) use of aspirin; Z79.02 Long term (current) use of antithrombotics/antiplatelets
CPT/HCPCS: 0241U; 36415; 50432; 71045; 74177; 76937; 80048; 80053; 80069; 81001; 83605; 83735; 83880; 84145; 84484; 85025; 85027; 87040; 87077; 87086; 87186; 93005; 93010; 96365-59; 96366-59; 96368; 96375-59; 97110; 97162; 97166; 97530; 97535; 99152; 99284-25; A9270; C1729; C1769; C1894; J0696; J1956; J2185; J2250; J2405; J3010; J3370; J3480; J7030; J7040; J7050; P9612; Q9967

== ENCOUNTER 2022-01-24 15:25 | Emergency (ER) | payer MEDICARE, OTHER ==
[~2022-01-24] VITALS: Ht 160 cm; Wt 86.2 kg
[~2022-01-24 15:25] MED LIST changes: +ASPIR 8181 M1 PO; +ATOR40TA PO; +CLOP75 PO; +LEVO750 PO; +POTCHL20ER PO
[2022-01-24] MEDS ORDERED: CYMBALTA20 M2 PO (17:35)
[2022-01-24] MEDS ORDERED: POTA20PAC (17:36)
[2022-01-24] MEDS ORDERED: Toprol Xl50 MG PO (17:37)
[2022-01-24] MEDS ORDERED: SENNA LAXATIVE8.6 MG PO (17:43)
== END 2022-01-24 18:40 | disposition home or self-care (01) ==
LOC: ER 15:25
DX: K59.00 Constipation, unspecified (principal); I13.0 Hypertensive heart and chronic kidney disease with heart failure and stage 1 through stage 4 chronic kidney disease, or unspecified chronic kidney disease; N18.2 Chronic kidney disease, stage 2 (mild); I50.9 Heart failure, unspecified; K21.9 Gastro-esophageal reflux disease without esophagitis; Z88.5 Allergy status to narcotic agent; Z88.2 Allergy status to sulfonamides; Z88.0 Allergy status to penicillin; Z88.8 Allergy status to other drugs, medicaments and biological substances; Z79.899 Other long term (current) drug therapy; Z79.82 Long term (current) use of aspirin
CPT/HCPCS: A9270

== ENCOUNTER 2022-02-17 11:27 | Emergency (ER) | payer MEDICARE, OTHER ==
[~2022-02-17] VITALS: Ht 165.1 cm; Wt 93.4 kg
[~2022-02-17 11:27] MED LIST changes: +SENNA LAXATIVE8.6 MG PO; +Toprol Xl50 MG PO
[2022-02-17 13:04] LABS: BASOPHILS ABSOLUTE AUTO 0.03 K/mm3 (0.00-0.23); BASOPHILS PERCENT AUTO 0 % (0-2); EOSINOPHILS ABSOLUTE AUTO 0.38 K/mm3 (0.00-0.68); EOSINOPHILS PERCENT AUTO 4 % (0-6); Hematocrit 38.4 % (33.0-51.0); Hemoglobin 12.9 g/dL (11.5-16.0); IMMATURE GRAN ABSOLUTE AUTO 0.04 K/mm3 (0.00-0.10); IMMATURE GRAN PERCENT AUTO 0 % (0-1); LYMPHOCYTES PERCENT AUTO 19 % (21-46); MONOCYTES ABSOLUTE AUTO 0.67 K/mm3 (0.16-1.47); MONOCYTES PERCENT AUTO 7 % (4-13); Mean Corpuscular HGB 32.6 pg (26.0-34.0); Mean Corpuscular HGB Conc 33.6 g/dL (31.5-36.5); Mean Corpuscular Volume 97 fL (80-100); Mean Platelet Volume 10.6 fL (9.1-12.4); NEUTROPHILS ABSOLUTE AUTO 6.41 K/mm3 (1.96-9.15); NEUTROPHILS PERCENT AUTO 69 % (41-73); Platelet Count 187 K/mm3 (150-400); RDW Coefficient Variation 13.6 % (11.7-14.2); RDW Standard Deviation 49.1 fL (35.1-46.3); Red Blood Cell Count 3.96 M/mm3 (3.80-5.20); White Blood Cell Count 9.33 K/mm3 (4.00-11.30)
[2022-02-17 13:25] LABS: Albumin, Blood 2.9 g/dL (3.4-5.0); Albumin/Globulin Ratio 0.8 (0.8-1.8); Bilirubin, Total 0.8 mg/dL (0.1-1.0); Bun/Creatinine Ratio 16.4 (12.0-20.0); Calcium, Blood 9.4 mg/dL (8.5-10.1); Creatinine, Blood 0.97 mg/dL (0.40-1.00); Globulin, Blood 3.8 g/dL (2.2-4.0); Potassium, Blood 3.9 mmol/L (3.5-5.5); Total Protein, Blood 6.7 g/dL (6.4-8.2)
[2022-02-17 14:01] LABS: Source, Urine Nephrostomy
[2022-02-17 14:26] LABS: Appearance, Urine Hazy (Clear); Bilirubin, Urine Neg (Neg); Blood, Urine 5+ (Neg); Glucose Qualitative, Urine Neg (Neg); Ketones, Urine Neg (Neg); Leukocyte Esterase, Urine 3+ (Neg); Nitrite, Urine Neg (Neg); Protein, Urine 2+ (Neg); Specific Gravity, Urine 1.015 (1.003-1.022); Urobilinogen, Urine NORM (Normal)
[2022-02-17 14:34] LABS: Color, Urine Red (P-Yellow)
[2022-02-17 14:36] LABS: Bacteria Mod /hpf; Calcium Oxalate Crystals Few /hpf; Red Blood Cells, Urine 50-100 /hpf (0-2); Squamous Epithelial Cells Not Seen /hpf (Few)
== END 2022-02-17 18:10 | disposition home or self-care (01) ==
LOC: ER 11:27
PROVIDERS: Emergency Medicine
DX: N99.520 Hemorrhage of incontinent external stoma of urinary tract (principal); I12.9 Hypertensive chronic kidney disease with stage 1 through stage 4 chronic kidney disease, or unspecified chronic kidney disease; N18.2 Chronic kidney disease, stage 2 (mild); I25.2 Old myocardial infarction; K21.9 Gastro-esophageal reflux disease without esophagitis; I25.10 Atherosclerotic heart disease of native coronary artery without angina pectoris; Z88.5 Allergy status to narcotic agent; Z88.0 Allergy status to penicillin; Z88.2 Allergy status to sulfonamides; Z88.8 Allergy status to other drugs, medicaments and biological substances; Z86.73 Personal history of transient ischemic attack (TIA), and cerebral infarction without residual deficits
CPT/HCPCS: 36415; 74177; 80053; 81001; 85025; Q9967

== ENCOUNTER 2022-10-08 09:24 | Inpatient (IN) | payer MEDICARE, OTHER ==
[~2022-10-08] VITALS: Ht 157.5 cm; Wt 88.8 kg
[2022-10-08 10:00] LABS: Source, Urine Fem Cath
[2022-10-08 10:04] LABS: Appearance, Urine Hazy (Clear); BASOPHILS ABSOLUTE AUTO 0.03 K/mm3 (0.00-0.23); BASOPHILS PERCENT AUTO 0 % (0-2); Bilirubin, Urine Neg (Neg); Blood, Urine 5+ (Neg); Color, Urine Yellow (P-Yellow); EOSINOPHILS ABSOLUTE AUTO 0.14 K/mm3 (0.00-0.68); EOSINOPHILS PERCENT AUTO 2 % (0-6); Glucose Qualitative, Urine Neg (Neg); Hematocrit 39.7 % (33.0-51.0); Hemoglobin 13.3 g/dL (11.5-16.0); IMMATURE GRAN ABSOLUTE AUTO 0.02 K/mm3 (0.00-0.10); IMMATURE GRAN PERCENT AUTO 0 % (0-1); Ketones, Urine Neg (Neg); LYMPHOCYTES ABSOLUTE AUTO 1.27 K/mm3 (0.84-5.20); LYMPHOCYTES PERCENT AUTO 19 % (21-46); Leukocyte Esterase, Urine 3+ (Neg); MONOCYTES ABSOLUTE AUTO 0.33 K/mm3 (0.16-1.47); MONOCYTES PERCENT AUTO 5 % (4-13); Mean Corpuscular HGB Conc 33.5 g/dL (31.5-36.5); Mean Corpuscular Volume 95 fL (80-100); Mean Platelet Volume 9.8 fL (9.1-12.4); NEUTROPHILS ABSOLUTE AUTO 4.98 K/mm3 (1.96-9.15); NEUTROPHILS PERCENT AUTO 74 % (41-73); Nitrite, Urine Neg (Neg); Platelet Count 204 K/mm3 (150-400); Protein, Urine 2+ (Neg); RDW Coefficient Variation 13.4 % (11.7-14.2); RDW Standard Deviation 46.9 fL (35.1-46.3); Red Blood Cell Count 4.16 M/mm3 (3.80-5.20); Urobilinogen, Urine NORM (Normal); White Blood Cell Count 6.77 K/mm3 (4.00-11.30); pH, Urine 6.5 (5.0-8.0)
[2022-10-08 10:20] LABS: International Normalized Ratio 1.05
[2022-10-08 10:22] LABS: Albumin/Globulin Ratio 0.9 (0.8-1.8); Bilirubin, Total 0.6 mg/dL (0.1-1.0); Bun/Creatinine Ratio 15.3 (12.0-20.0); Creatinine, Blood 0.85 mg/dL (0.40-1.00); Globulin, Blood 3.3 g/dL (2.2-4.0); Potassium, Blood 3.2 mmol/L (3.5-5.5); Total Protein, Blood 6.3 g/dL (6.4-8.2)
[2022-10-08 10:25] LABS: Bacteria Many /hpf; Red Blood Cells, Urine TNTC /hpf (0-2); Squamous Epithelial Cells Rare /hpf (Few)
--- NOTE | 2022-10-08 14:46 | NUR ---
DR. SOUSA WANTS TO HOLD ALL SWALLOWING PO MEDS UNTIL SPEECH THERAPY HAS ASSESSED PT. NO PLAVIX AT THIS TIME. PT HAVING NAUSEA AND VOMITING. MD NOTIFIED SEE EMAR.
[2022-10-08 15:56] VITALS: BP 159/90
--- NOTE | 2022-10-08 16:11 | NUR ---
MIXER LEVER OPERATOR CALLED TO REPORT ST ELEVATION OF -2.[address] SOUSA NOTIFIED. EKG ORDERED. ECHO IN PROGRESS AT THE MOMENT.
--- NOTE | 2022-10-08 16:13 | NUR ---
LATE ENTRY-1400 ER ADMIT. PT IS ALERT AND ORIENTED X4. SLURRED SPEECH. UNABLE TO UNDERSTAND PT TO GET ACCURATE INFORMATION ON MEDICAITONS AND MEDICAL HISTORY. CONFUSED, PT IS TRYING TO MAKE CALLS WITH REMOTE. PT IS HAVING DIFFIFULT TIME WITH COORDINATION. BED IS IN THE LOWEST POSTITION WITH ALARM ON AND CALL LIGHT IN REACH.
--- NOTE | 2022-10-08 19:21 | NUR ---
PT MENTATION IS MUCH CLEARER THIS EVENING. ABLE TO HAVE CONVERSATION WITH HEARING AIDS IN. PT REPORTS USING 2L NC WHILE SLEEPING. DR. VIDALES NOTIFIED, SEE ORDERS.
[2022-10-08 20:17] VITALS: BP 148/67
[2022-10-09] VITALS (15 sets, daily range): BP systolic 113–160; BP diastolic 54–77
--- NOTE | 2022-10-09 04:04 | NUR ---
SHIFT SUMMARY. PT IS AOX3-4, SOMEWHAT EASILY REORIENTED AND REDIRECTABLE. SATTING WELL ON 2 L O2 VIA NC. PUREWICK IN PLACE THROUGHOUT SHIFT. PT COMPLAINED OF INTENSE ITCHING EARLY IN SHIFT. APPLIED LOTION WHICH DID NOT HELP. CALLED HOSPITALIST WENDY WHO ORDERED 25 MG IV BENADRYL ONE TIME WHICH ALLEVIATED SYMPTOMS. PT DOES NOT ALWAYS USE CALL LIGHT APPROPRIATELY BUT IS ABLE TO MAKE NEEDS KNOWN. NO CHANGES IN PT CONDITION OR STATUS THIS SHIFT. POWERGLIDE HAS NOT BEEN DRAWING THIS MORNING DESPITE MYSELF AND ONE OTHER NURSE ATTEMPTING. PT REFUSED LAB DRAW FROM [employer]. FLUIDS RUNNING THROUGHOUT SHIFT. NO PAIN REPORTED. PT HAS SLEPT SPORADICALLY. BED LOCKED IN LOWEST POSITION. CALL LIGHT LEFT WITHIN REACH.
--- NOTE | 2022-10-09 06:17 | NUR ---
THIS MORNING, NOTED PT HAS INCREASED CONFUSION WHEN COMPARED TO ASSESSMENT LAST NIGHT. ABLE TO TELL ME NAME/ AND THE YEAR. THOUGHT SHE WAS IN HER LIVING ROOM AT HOME. REPORTED SEEING HER SON IN HER ROOM THIS MORNING DESPITE HER SON LEAVING LATE LAST NIGHT. SAID THAT SHE HAD A DOG IN THE OTHER ROOM PROTECTING HER. REORIENTED TO HER BEING THE HOSPITAL AND WHY SHE IS HERE. EASILY REORIENTED. REMAINS PLEASANT/COOPERATIVE WITH CARE. CONTINUING TO MONITOR.
[2022-10-09 07:01] LABS: CHOL/HDL RATIO 1.7; Cholesterol 83 mg/dL (50-200); HDL Cholesterol 50 mg/dL (>39); LDL/HDL RATIO 0.3; Low Density Lipoprotein Chol 15 mg/dL (0-110); Triglycerides 89 mg/dL (30-160); Very Low Density Lipoprot Chol 17 mg/dL (6-32)
--- NOTE | 2022-10-09 11:55 | NUR ---
PT UNABLE TO SWALLOW PILLS WHOLE. CRUSHED IN APPLESAUCE TOLORATED OK.
[2022-10-09 13:29] LABS: BASOPHILS ABSOLUTE AUTO 0.03 K/mm3 (0.00-0.23); BASOPHILS PERCENT AUTO 0 % (0-2); EOSINOPHILS ABSOLUTE AUTO 0.66 K/mm3 (0.00-0.68); EOSINOPHILS PERCENT AUTO 6 % (0-6); Hematocrit 43.5 % (33.0-51.0); Hemoglobin 14.9 g/dL (11.5-16.0); IMMATURE GRAN ABSOLUTE AUTO 0.04 K/mm3 (0.00-0.10); IMMATURE GRAN PERCENT AUTO 0 % (0-1); LYMPHOCYTES ABSOLUTE AUTO 0.79 K/mm3 (0.84-5.20); LYMPHOCYTES PERCENT AUTO 8 % (21-46); MONOCYTES ABSOLUTE AUTO 0.47 K/mm3 (0.16-1.47); MONOCYTES PERCENT AUTO 4 % (4-13); Mean Corpuscular HGB 32.3 pg (26.0-34.0); Mean Corpuscular HGB Conc 34.3 g/dL (31.5-36.5); Mean Corpuscular Volume 94 fL (80-100); NEUTROPHILS PERCENT AUTO 81 % (41-73); RDW Coefficient Variation 13.5 % (11.7-14.2); RDW Standard Deviation 46.5 fL (35.1-46.3); Red Blood Cell Count 4.62 M/mm3 (3.80-5.20); White Blood Cell Count 10.59 K/mm3 (4.00-11.30)
[2022-10-09 13:41] LABS: Bun/Creatinine Ratio 12.8 (12.0-20.0); Calcium, Blood 9.7 mg/dL (8.5-10.1); Creatinine, Blood 0.94 mg/dL (0.40-1.00); Potassium, Blood 3.5 mmol/L (3.5-5.5)
[2022-10-09 13:50] LABS: Mean Platelet Volume 10.1 fL (9.1-12.4); Platelet Count 203 K/mm3 (150-400)
--- NOTE | 2022-10-09 13:52 | NUR ---
TRANSFER UPDATE REPORT RECIEVED FROM BRETT WAGNER FROM [facility] AT 1346. PT DOWN TO CT AT THIS TIME.
--- NOTE | 2022-10-09 14:21 | NUR ---
LATE ENTRY- PT TRANSFER PCU DURING POWERGLIDE INSERTION, PT CLAYTON DOWN IN 30'S. PT ALSO HYPOTENSIVE. NOTIFIED, HEAD CT, NS BOLUS AND TRANSFER TO PCU ORDERED. NS BOLUS STARTED. PT BP NORMALIZED AND WAS TRANSFERED TO PCU. GAVE REPORT TO BERNARD COLLAZO.
--- NOTE | 2022-10-09 19:01 | NUR ---
SHIFT SUMMARY PT ORIENTED TO SELF AND FAMILY. PT ABLE TO ANSWER FEW YES/NO QUESTIONS APPROPIATELY AND ATTEMPTS TO SPEAK TO STAFF AND FAMILY, MUMBLES INCOMPREHENSIBLE WORDS. PT HAD EPISODE OF DRY HEAVES THAT CAUSED PT TO CLAYTON TO THE 30'S, ATROPINE GIVEN PER MD ORDER. NO LOC DURING CLAYTON EPISODE. PT CONTINUES TO BE LETHARGIC WITH BRIEF PERIODS OF OPENING EYES TO VERBAL STIMULI. PT SON'S WERE AT BEDSIDE AND DISCUSEED CODE STATUS WITH MD, CONTINUE FULL CODE. PT HAD HEAD CT AND ABD CT, SEE CT RESULTS. ATROPINE AT THE BEDSIDE PER ORDER, DESKTOP SUPPORT TECHNICIAN UPDATED ON PT CONDITION AND WHAT TO WATCH FOR.
--- NOTE | 2022-10-09 20:00 | NUR ---
ASSUMED CARE OF PT AT 1915. REPORT RECEIVED. PT PRESENTS IN BED. PULLING AT HER BLOOD PRESSURE CUFF, AND TELEMETRY LEADS. DID INSTRUCT PT THAT THESE LEADS AND TUBES ARE IMPORTANT AND SHE SHOULD NOT TRY AND REMOVE THEM. PT VERY HARD OF HEARING. NO BRADYCARDIC EVENTS NOTED. WILL REVIEW CHART AND PLAN OF CARE FOR THIS PT.
[2022-10-10] VITALS (7 sets, daily range): BP systolic 113–137; BP diastolic 42–98
--- NOTE | 2022-10-10 00:05 | NUR ---
PT CONTINUES WITH BEING PLEASANTLY CONFUSED. HAS DECREASED THE AMOUNT OF TIME SHE HAS SPENT TRYING TO REMOVE MONITORING EQUIPTMENT. NO BRADYCARDIC EVENTS.
[2022-10-10 06:44] LABS: BASOPHILS ABSOLUTE AUTO 0.02 K/mm3 (0.00-0.23); BASOPHILS PERCENT AUTO 0 % (0-2); EOSINOPHILS ABSOLUTE AUTO 0.83 K/mm3 (0.00-0.68); EOSINOPHILS PERCENT AUTO 6 % (0-6); Hematocrit 37.4 % (33.0-51.0); Hemoglobin 12.3 g/dL (11.5-16.0); IMMATURE GRAN ABSOLUTE AUTO 0.06 K/mm3 (0.00-0.10); IMMATURE GRAN PERCENT AUTO 1 % (0-1); LYMPHOCYTES ABSOLUTE AUTO 1.01 K/mm3 (0.84-5.20); LYMPHOCYTES PERCENT AUTO 8 % (21-46); MONOCYTES ABSOLUTE AUTO 0.65 K/mm3 (0.16-1.47); MONOCYTES PERCENT AUTO 5 % (4-13); Mean Corpuscular HGB 32.1 pg (26.0-34.0); Mean Corpuscular HGB Conc 32.9 g/dL (31.5-36.5); Mean Corpuscular Volume 98 fL (80-100); Mean Platelet Volume 9.7 fL (9.1-12.4); NEUTROPHILS ABSOLUTE AUTO 10.69 K/mm3 (1.96-9.15); NEUTROPHILS PERCENT AUTO 81 % (41-73); Platelet Count 219 K/mm3 (150-400); RDW Coefficient Variation 13.6 % (11.7-14.2); RDW Standard Deviation 48.7 fL (35.1-46.3); Red Blood Cell Count 3.83 M/mm3 (3.80-5.20); White Blood Cell Count 13.26 K/mm3 (4.00-11.30)
--- NOTE | 2022-10-10 07:01 | NUR ---
BED ALARM TO BED FOR PT SAFETY. PT IS CAPABLE TO OF FOLLOWING COMMANDS. MILD DISORIENTATION AT TIMES. PULLS OFF MONITORING EQUIPMENT. WILL CONTINUE TO MONITOR PT, AND WILL REPORT OFF TO ONCOMING RN.
[2022-10-10 07:09] LABS: Albumin, Blood 2.7 g/dL (3.4-5.0); Bilirubin, Total 0.4 mg/dL (0.1-1.0); Bun/Creatinine Ratio 14.4 (12.0-20.0); Calcium, Blood 9.3 mg/dL (8.5-10.1); Creatinine, Blood 0.9 mg/dL (0.40-1.00); Globulin, Blood 2.8 g/dL (2.2-4.0); Phosphorus, Blood 2.6 mg/dL (2.5-4.9); Total Protein, Blood 5.5 g/dL (6.4-8.2)
--- NOTE | 2022-10-10 07:45 | NUR ---
VERBAL ORDER FOR NS BOLUS 10/09 FOR HYP[address]ENSION GIVEN BY DR. SOUSA. ORDER
--- NOTE | 2022-10-10 10:00 | NUR ---
INITIAL ASSESSMENT PATIENT AWAKE AND WIDE EYED UPON ENTERING ROOM. PATIENT ALERT AND ORIENTED TO SELF AND YEAR ONLY. PATIENT MORE ORIENTED AT TIMES THAN OTHERS. PATIENT VERY QUINAULT; HEARING AIDES PLACED. PATIENT CALM AND COOPERATIVE. PATIENT WITHDRAWN AND HAS FLAT AFFECT. SPEECH SLIGHTLY SLURRED. L MOUTH DROOP NOTED. EXTREMITIES EQUAL IN MOVEMENT AND STRENGHT. PATIENT AFEBRILE. PATIENT DENIES PAIN OR DISCOMFORT. PATIENT SATTING 90% AND GREATER ON RA. LUNGS CLEAR IN UPPER LOBES AND DIMINISHED IN LOWER LOBES. PATIENT HAS OCCASIONAL COUGH. PATIENT IN SINUS ARRHYTHMIA WITH BBB, HR IN THE 60S. SBP IN THE 130S. 1+ EDEMA NOTED TO BLES. ABD MODERATELY DISTENDED; PATIENT STATES NORMAL FOR HER. PLAQUE NOTED TO MOUTH AND TONGUE. PATIENT WAS ON MECHANICAL SOFT DIET BUT MADE NPO THIS AM AFTER PATIENT HAVING COUGHING FIT AFTER TAKING LAST PO MEDICATION. ATTENDS IN PLACE FOR INCONTINENCE. URINE ABNER IN COLOR. SKIN DRY. BLES RED AND HOT; DR. SOUSA AWARE. COCCYX AND ANUS REDDENED. SMALL OPEN WOUND TO R CALF. ABD, THIGH, AND ALEXANDRA FOLDS REDDENED AND INFLAMED. R CHEECK SCAB, PLAQUE NOTED. D5W 1/2 NS INFUSING AT 50 MLS/ HOUR THIS AM. BED LOW, CALL LIGHT IN REACH.
--- NOTE | 2022-10-10 12:40 | NUR ---
PATIENT AFEBRILE. HR IN THE 50S. SBP IN THE 1-TEENS. PATIENT REMAINS ON RA. PATIENT NOW ORIENTED TO SELF, TOWN, HOSPITAL AND YEAR. NO OTHER ACUTE CHANGES TO NOTE ON AT THIS TIME. NO COMPLAINTS. BED LOW, CALL LIGHT IN REACH.
--- NOTE | 2022-10-10 16:49 | NUR ---
PATIENT AFEBRILE. HR IN THE 50S. SBP IN THE 120S. PATIENT REMAINS SATTING 90% AND GREATER ON RA. PATIENT ALERT AND ORIENTED X 4. PATIENT PASSED SWALLOW EVAL AND BACK ON MECHANICAL SOFT DIET FROM NPO PER DR. SOUSA. NO COMPLAINTS. BED LOW, CALL LIGHT IN REACH, BED ALARM ON.
--- NOTE | 2022-10-10 18:35 | NUR ---
SHIFT SUMMARY PATIENT HAD OFF AND ON CONFUSION. PATIENT MORE ORIENTED SHIFT WENT ON. PATIENT DANGLING ON SIDE OF BED THIS AFTERNOON, SPEAKING TO SONS AND A&O X 4. PATIENT REMAINED CALM AND COOPERATIVE. PATIENT REMAINED AFEBRILE. PATIENT HAD NO COMPLAINTS OF PAIN THIS SHIFT. PATIENT REMAINED WITH DROOP NOTED TO L SIDE OF MOUTH BUT MOVEMENT AND STRENGTH IN ALL EXTREMITIES REMAINED EQUAL. PATIENT REMAINED SATTING 90% AND GREATER ON RA. PATIENT REMAINED IN SINUS ARRHYTHMIA WITH BBB, HR 50S TO 60S. SBP 1-TEENS TO 130S. PATIENT HAD BM THIS AM. PATIENT MADE NPO THIS AM AFTER HAD COUGHING FIT WHEN TAKING LAST PILL WITH WATER. LATER PATIENT PASSED RN BEDSIDE SWALLOW EVAL AND WAS PLACED BACK ON MECHANICAL SOFT DIET PER DR. SOUSA. PATIENT DID NOT EAT MUCH OF DINNER. ATTENDS REMAINED IN PLACE FOR INCONTINENCE. URINE ABNER IN COLOR. NO CHANGES TO SKIN NOTED. PATIENT FAVORS LYING ON LEFT SIDE. PATIENT INFORMED THAT IT IS BETTER FOR HER SKIN TO ROTATE FROM HIP TO HIP TO NOT GET ULCER ON LEFT SIDE. LEVAQUIN CHANGED TO ROCEPHIN THIS SHIFT AFTER URINE CAME BACK + FOR KLEBSIELLA. D5W 1/2 NS INCREASED FROM 50 MLS/ HOUR TO 75 MLS/ HOUR THIS SHIFT. PATIENT RECEIVED 60 MEQ KCL THIS SHIFT FOR AM POTASSIUM OF 3.0. PATIENT RECEIVED COMPLETE BED BATH THIS SHIFT. BED LOW, CALL LIGHT IN REACH, BED ALARM ON. REPORT WILL BE GIVEN TO ASSUMING SILVERWARE SUPERVISOR NURSE SHORTLY.
[2022-10-11 03:22] VITALS: BP 117/82
[2022-10-11 04:22] LABS: BASOPHILS ABSOLUTE AUTO 0.02 K/mm3 (0.00-0.23); BASOPHILS PERCENT AUTO 0 % (0-2); EOSINOPHILS ABSOLUTE AUTO 0.93 K/mm3 (0.00-0.68); EOSINOPHILS PERCENT AUTO 7 % (0-6); Hematocrit 36.2 % (33.0-51.0); Hemoglobin 11.9 g/dL (11.5-16.0); IMMATURE GRAN ABSOLUTE AUTO 0.05 K/mm3 (0.00-0.10); IMMATURE GRAN PERCENT AUTO 0 % (0-1); LYMPHOCYTES ABSOLUTE AUTO 0.99 K/mm3 (0.84-5.20); LYMPHOCYTES PERCENT AUTO 8 % (21-46); MONOCYTES ABSOLUTE AUTO 0.64 K/mm3 (0.16-1.47); MONOCYTES PERCENT AUTO 5 % (4-13); Mean Corpuscular HGB 32.2 pg (26.0-34.0); Mean Corpuscular HGB Conc 32.9 g/dL (31.5-36.5); Mean Corpuscular Volume 98 fL (80-100); Mean Platelet Volume 10.2 fL (9.1-12.4); NEUTROPHILS PERCENT AUTO 80 % (41-73); Platelet Count 221 K/mm3 (150-400); RDW Coefficient Variation 13.8 % (11.7-14.2); RDW Standard Deviation 48.9 fL (35.1-46.3); White Blood Cell Count 12.83 K/mm3 (4.00-11.30)
[2022-10-11 04:41] LABS: Albumin, Blood 2.6 g/dL (3.4-5.0); Bilirubin, Total 0.5 mg/dL (0.1-1.0); Bun/Creatinine Ratio 12.2 (12.0-20.0); Calcium, Blood 9.2 mg/dL (8.5-10.1); Creatinine, Blood 0.9 mg/dL (0.40-1.00); Globulin, Blood 2.7 g/dL (2.2-4.0); Magnesium, Blood 1.6 mg/dL (1.6-2.4); Phosphorus, Blood 1.9 mg/dL (2.5-4.9); Potassium, Blood 3.5 mmol/L (3.5-5.5); Total Protein, Blood 5.3 g/dL (6.4-8.2)
--- NOTE | 2022-10-11 06:38 | NUR ---
SHIFT SUMMARY A/Ox2 AND IS OFTEN VERY CONFUSED. DOESNT KNOW WHERE SHE IS MOST OF THE TIME AND IS FREQUENTLY PULLING AT LINES. ALSO REPORTS HAVING VISUAL HALLUCINATIONS SUCH "THE SPIDERS ARE CRAWLING ON THE CEILING!" OR WOULD ATTEMPT TO TALK TO FAMILY MEMBERS THAT WERE NOT PRESENT IN THE ROOM AT THE TIME. THIS TREND HAS CONTINUED T/O THE SHIFT AND MOST OF DAYSHIFT YESTERDAY PER REPORT. CARDIAC, REMAINS IN SINUS CLAYTON 50'S WITH NO C/O CP OR PRESSURE T/O THE NIGHT. SBP HAS REMAINED STABLE RANGING 110'S. RESPIRATORY, MAINTAINS SPO2 >90% ON RA WITH NO REPORTS OF SOB OR DYPSNEA. GI/, INCONTINENT OF BOTH URINE AND STOOL. ATTEND IN PLACE AND CHANGED PRN TO KEEP CLEAN AND DRY. COTNINUES TO PRODUCE ABNER COLORED URINE WITH 1x BM LAST NIGHT. D5 W/ 1/2 NS INFUSING ORDERED PER EMAR T/O THE NIGHT. Q2 HOUR NEURO CHECKS PERFORMED ORDERED. ASSESSED PT FOR RISKS OF ANY IGNITION SOURCES WELL BEHAVIORS FOR INCREASED RISKS OF FIRE DANGER. PT EDUCATED ON COMMON SOURCES OF IGNITION WELL NEED TO KEEP A SAFE ENVIRONMENT. PT VOICED UNDERSTANDING. NO NEW ORDERS AT THIS TIME, WILL REPORT TO ONCOMING RN. TAI REGAN OF THIS NOTE
[2022-10-11 08:10] VITALS: BP 139/44
[2022-10-11 11:11] VITALS: BP 126/54
--- NOTE | 2022-10-11 14:57 | NUR ---
Met with pt today at bedside, she is able to hold brief conversations before wearing out. She denied pain today, and requested assistance in change of position, which I did assist with. She was unable to work with ST this morning due to lethargy. Hopeful she will be able to try again this afternoon, as she is currently NPO. According to report from PT, pt's 2 sons stated, "No way" to any discussion of changing code status to anything other "Full Code". The sons apparently live with the patient, or vice versa. They were not present this morning at this visit. Attempted to call them on their shared phone number, left a message, request a return call.
[2022-10-11 16:44] VITALS: BP 124/60
--- NOTE | 2022-10-11 18:27 | NUR ---
shift summary pt's alertness waxes and wanes. oriented to self, sons. not place or staff. some hallucinations. sp02>90% on ra, 2l nc placed for comfort per pt and son;s request. telemetry shows sinus annamaria hr mostly 50's. pt unable to swallow oral medications this am. speech inroom to place pt npo. q2h reposition. bed bath given. c/d attends in place. call light in reach.
[2022-10-11 19:37] VITALS: BP 145/47
[2022-10-11 23:07] VITALS: BP 143/44
[2022-10-12 03:23] VITALS: BP 141/55
--- NOTE | 2022-10-12 05:15 | NUR ---
SHIFT SUMMARY A/Ox2-3, MUCH MORE ORIENTATED THIS NIGHT COMPARED TO LAST. 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 STILL CONFUSED AT TIMES, BUT HAS NOT BEEN PULLING AT LINES OR ANY VISUAL HALLUCINATIONS THIS SHIFT. LEFT FACIAL DROOP STILL NOTED WITH GENERAL OVERALL WEAKNESS/DECONDITIONING. EYES REMAIN PERRLA WITH NO FIXED GAZE OR NYSTAGMUS NOTED. CARDIAC, REMAINS IN SB-SR 50-80'S WITH NO C/O CP OR PRESSURE T/O THE NIGHT. SBP ELEVATED COMPARED TO LAST SHIFT, BUT HAS REMAINED STABLE RANGING 140'S. RESPIRATORY, MAINTAINS SPO2 >90% ON RA WITH NO REPORTS OF SOB OR DYSPNEA. 2L NC PLACED AT NIGHT FOR PT HAS AUDIBLE SNORING AND WHEN DESAT TO 87-88% WHEN SLEEPING. GI/, CONTINUES TO BE INCONTINENT OF BOTH URINE AND STOOL. ATTENDS IN PLACE AND CHANGED PRN TO KEEP CLEAN AND DRY. CONTINUES TO PRODUCE ABNER COLORED URINE WITH 1x BM LAST NIGHT. D5 W/ 1/2 NS INFUSING ORDERED PER EMAR T/O THE NIGHT. Q6 HOUR NEURO CHECKS PERFORMED ORDERED. Q2 HR REPOSITIONING PERFORMED TO KEEP PRESSURE OFF OF BONY PROMINENCES. PALLIATIVE CARE ON BOARD TO DISCUSS PLAN OF CARE WITH FAMILY IN AM. ASSESSED PT FOR RISKS OF ANY IGNITION SOURCES WELL BEHAVIORS FOR INCREASED RISKS OF FIRE DANGER. PT EDUCATED ON COMMON SOURCES OF IGNITION WELL NEED TO KEEP A SAFE ENVIRONMENT. PT VOICED UNDERSTANDING. NO NEW ORDERS AT THIS TIME, WILL REPORT TO ONCOMING RN. TAI REGAN OF THIS NOTE
[2022-10-12 08:12] VITALS: BP 105/91
--- NOTE | 2022-10-12 11:22 | NUR ---
Spoke to pt's 2 sons today over speakerphone. We had an at length discussion regarding code status, and they state it makes better sense to them now. They both agree the pt would want DNR status, but will wait until one of them come for a visit this afternoon. This way, the pt can answer with son present, and we can hopefully also have a more in-depth discussion on advance care planning.
[2022-10-12 16:59] VITALS: BP 137/74
--- NOTE | 2022-10-12 17:49 | NUR ---
SHIFT SUMMARY; ASSUMED CARE AT 0700. AWAKES TO VERBAL STIMULI, ANSWERS QUESTIONS, ABLE TO STATE NAME AND WHERE SHE IS. FOLLOWS COMMANDS TO MOVE ALL FOUR EXTREMETIES. BROOM WORKER EQUAL, PERRL, RIGHT LEG SLIGHTLY WEAKER THAN LEFT. Q2 TURNS DURING SHIFT, PT ABLE TO ASSIST WITH TURNING. INCONTIANT TODAY OF URINE AND STOOL, ATTENDS CHANGES NEEDED. STATUS CHANGED TO MEDICAL, NO ACUTE CHANGES, WILL CONTINUE TO MONITOR AND TREAT UNTIL CHANGE OF SHIFT.
[2022-10-12 19:36] VITALS: BP 143/59
[2022-10-13 04:23] VITALS: BP 140/96
--- NOTE | 2022-10-13 06:00 | NUR ---
SHIFT SUMMARY A/O 2-3, BEDREST. W/C BOUND AT BASELINE. SLEPT T/O THE NIGHT, Q2 REPOSITIONING. INCONT, ATTENDS IN PLACE. IV FLUIDS INFUSING PER EMAR. SPO2 >92% ON 2L NC. VSS, NO ACUTE CHANGES AT THIS TIME. BED IN LOWEST POSITION WITH CALL LIGHT IN REACH. WILL CONTINUE TO MONITOR AND REPORT TO ONCOMING RN.
[2022-10-13 07:53] VITALS: BP 165/88
[2022-10-13 09:34] LABS: BASOPHILS ABSOLUTE AUTO 0.02 K/mm3 (0.00-0.23); BASOPHILS PERCENT AUTO 0 % (0-2); EOSINOPHILS ABSOLUTE AUTO 0.75 K/mm3 (0.00-0.68); EOSINOPHILS PERCENT AUTO 9 % (0-6); Hematocrit 38.6 % (33.0-51.0); Hemoglobin 12.9 g/dL (11.5-16.0); IMMATURE GRAN ABSOLUTE AUTO 0.03 K/mm3 (0.00-0.10); IMMATURE GRAN PERCENT AUTO 0 % (0-1); LYMPHOCYTES ABSOLUTE AUTO 0.94 K/mm3 (0.84-5.20); LYMPHOCYTES PERCENT AUTO 11 % (21-46); MONOCYTES ABSOLUTE AUTO 0.55 K/mm3 (0.16-1.47); MONOCYTES PERCENT AUTO 6 % (4-13); Mean Corpuscular HGB 32.1 pg (26.0-34.0); Mean Corpuscular HGB Conc 33.4 g/dL (31.5-36.5); Mean Corpuscular Volume 96 fL (80-100); Mean Platelet Volume 9.9 fL (9.1-12.4); NEUTROPHILS ABSOLUTE AUTO 6.29 K/mm3 (1.96-9.15); NEUTROPHILS PERCENT AUTO 73 % (41-73); Platelet Count 189 K/mm3 (150-400); RDW Coefficient Variation 13.6 % (11.7-14.2); RDW Standard Deviation 48.3 fL (35.1-46.3); Red Blood Cell Count 4.02 M/mm3 (3.80-5.20); White Blood Cell Count 8.58 K/mm3 (4.00-11.30)
[2022-10-13 09:48] LABS: Albumin, Blood 2.4 g/dL (3.4-5.0); Anion Gap 5 mmol/L (6-16); Blood Urea Nitrogen 5 mg/dL (8-24); Bun/Creatinine Ratio 7.4 (12.0-20.0); CO2, Blood 27 mmol/L (21-32); Calcium, Blood 8.9 mg/dL (8.5-10.1); Chloride, Blood 112 mmol/L (98-108); Creatinine, Blood 0.68 mg/dL (0.40-1.00); Glomerular Filtration Rate 86 (60-); Glucose, Blood 118 mg/dL (70-99); Magnesium, Blood 1.6 mg/dL (1.6-2.4); Phosphorus, Blood 2.1 mg/dL (2.5-4.9); Potassium, Blood 3.9 mmol/L (3.5-5.5); Sodium, Blood 144 mmol/L (136-145)
--- NOTE | 2022-10-13 12:13 | NUR ---
Pt is discharging home today, to the care of her 2 sons. They are on board with the discharge plan. Pt has made her wishes for DNR known to both this RN, and to Dr. Longo. Both sons also on board and understanding of the pt's wish for DNR status. POLST at bedside ready for signature; pt resting with eyes closed. Left her undisturbed for now, as she can sign when closer to discharge this afternoon.
[2022-10-13] MEDS ORDERED: CYMBALTA20 M1 PO (14:24)
[2022-10-13] MEDS ORDERED: METO25ER PO (14:24)
[2022-10-13 16:18] VITALS: BP 152/105
== END 2022-10-13 18:03 | disposition home health service (06) | DRG 65 ==
LOC: ER 09:24 → PCU 11:46 → MEDS 11:46 → PCU 11:46 → MEDS 13:05 → PCU 10-09 13:45
PROVIDERS: Emergency Medicine; Family Medicine; ADMIT Internal Medicine
DX: I63.9 Cerebral infarction, unspecified (principal); G81.94 Hemiplegia, unspecified affecting left nondominant side; Z68.42 Body mass index [BMI] 45.0-49.9, adult; N39.0 Urinary tract infection, site not specified; I50.32 Chronic diastolic (congestive) heart failure; I13.0 Hypertensive heart and chronic kidney disease with heart failure and stage 1 through stage 4 chronic kidney disease, or unspecified chronic kidney disease; M10.9 Gout, unspecified; F32.A Depression, unspecified; R47.81 Slurred speech; R29.810 Facial weakness; R00.1 Bradycardia, unspecified; K21.9 Gastro-esophageal reflux disease without esophagitis; R29.705 NIHSS score 5; I95.9 Hypotension, unspecified; R41.82 Altered mental status, unspecified; N18.2 Chronic kidney disease, stage 2 (mild); M85.80 Other specified disorders of bone density and structure, unspecified site; I25.10 Atherosclerotic heart disease of native coronary artery without angina pectoris; Z95.5 Presence of coronary angioplasty implant and graft; I25.2 Old myocardial infarction; Z88.5 Allergy status to narcotic agent; Z88.2 Allergy status to sulfonamides; Z88.0 Allergy status to penicillin; Z88.8 Allergy status to other drugs, medicaments and biological substances; Z79.82 Long term (current) use of aspirin; Z79.899 Other long term (current) drug therapy; Z90.710 Acquired absence of both cervix and uterus; Z90.49 Acquired absence of other specified parts of digestive tract; Z87.891 Personal history of nicotine dependence; Z98.890 Other specified postprocedural states; Z79.02 Long term (current) use of antithrombotics/antiplatelets; Z79.2 Long term (current) use of antibiotics
CPT/HCPCS: 36415; 51701; 70450; 70496; 70498; 71045; 74177; 80048; 80053; 80061; 80069; 81001; 82947; 83036; 83605; 83735; 84100; 84145; 84484; 85025; 85610; 85730; 87077; 87086; 87186; 92526; 92610; 93005; 93010; 93306; 96365-59; 97110; 97162; 97166; 97530; 97535; 99285-25; A9270; C1751; J0461; J0696; J1200; J1650; J1956; J2405; J3475; J3480; J7030; J7042; J7060; Q9967

== ENCOUNTER 2022-11-26 12:35 | Emergency (ER) | payer MEDICARE, OTHER ==
[~2022-11-26] VITALS: Ht 160 cm; Wt 113.4 kg
[~2022-11-26 12:35] MED LIST changes: +CYMBALTA20 M1 PO
[2022-11-26 13:07] LABS: Source, Urine Fem Cath
[2022-11-26 13:16] LABS: Appearance, Urine Cloudy (Clear); Bilirubin, Urine Neg (Neg); Blood, Urine 2+ (Neg); Color, Urine Yellow (P-Yellow); Glucose Qualitative, Urine Neg (Neg); Ketones, Urine 1+ (Neg); Leukocyte Esterase, Urine 3+ (Neg); Nitrite, Urine Neg (Neg); Protein, Urine 2+ (Neg); Specific Gravity, Urine 1.015 (1.003-1.022); Urobilinogen, Urine NORM (Normal)
[2022-11-26 13:21] LABS: BASOPHILS ABSOLUTE AUTO 0.04 K/mm3 (0.00-0.23); BASOPHILS PERCENT AUTO 0 % (0-2); EOSINOPHILS ABSOLUTE AUTO 0.12 K/mm3 (0.00-0.68); EOSINOPHILS PERCENT AUTO 1 % (0-6); Hematocrit 45.9 % (33.0-51.0); Hemoglobin 15.4 g/dL (11.5-16.0); IMMATURE GRAN ABSOLUTE AUTO 0.04 K/mm3 (0.00-0.10); IMMATURE GRAN PERCENT AUTO 0 % (0-1); LYMPHOCYTES PERCENT AUTO 15 % (21-46); MONOCYTES ABSOLUTE AUTO 0.72 K/mm3 (0.16-1.47); MONOCYTES PERCENT AUTO 7 % (4-13); Mean Corpuscular HGB 32.6 pg (26.0-34.0); Mean Corpuscular HGB Conc 33.6 g/dL (31.5-36.5); Mean Corpuscular Volume 97 fL (80-100); Mean Platelet Volume 10.8 fL (9.1-12.4); NEUTROPHILS ABSOLUTE AUTO 8.36 K/mm3 (1.96-9.15); NEUTROPHILS PERCENT AUTO 77 % (41-73); Platelet Count 215 K/mm3 (150-400); RDW Coefficient Variation 13.3 % (11.7-14.2); Red Blood Cell Count 4.73 M/mm3 (3.80-5.20); White Blood Cell Count 10.88 K/mm3 (4.00-11.30)
[2022-11-26 13:23] LABS: Bacteria Many /hpf; Squamous Epithelial Cells Few /hpf (Few); White Blood Cells, Urine 25-50 /hpf (0-5)
[2022-11-26 13:37] LABS: Albumin, Blood 3.3 g/dL (3.4-5.0); Albumin/Globulin Ratio 0.9 (0.8-1.8); Bun/Creatinine Ratio 21.7 (12.0-20.0); Calcium, Blood 10.4 mg/dL (8.5-10.1); Creatinine, Blood 0.83 mg/dL (0.40-1.00); Globulin, Blood 3.6 g/dL (2.2-4.0); Total Protein, Blood 6.9 g/dL (6.4-8.2)
[2022-11-26] MEDS ORDERED: LEVFLO500 PO (14:14)
[2022-11-26 16:30] VITALS: BP 133/99
== END 2022-11-26 16:54 | disposition home or self-care (01) ==
LOC: ER 12:35
PROVIDERS: Emergency Medicine
DX: N39.0 Urinary tract infection, site not specified (principal); I12.9 Hypertensive chronic kidney disease with stage 1 through stage 4 chronic kidney disease, or unspecified chronic kidney disease; N18.2 Chronic kidney disease, stage 2 (mild); I25.10 Atherosclerotic heart disease of native coronary artery without angina pectoris; K21.9 Gastro-esophageal reflux disease without esophagitis; Z86.73 Personal history of transient ischemic attack (TIA), and cerebral infarction without residual deficits; Z88.5 Allergy status to narcotic agent; Z88.2 Allergy status to sulfonamides; Z88.0 Allergy status to penicillin; Z88.1 Allergy status to other antibiotic agents; Z79.82 Long term (current) use of aspirin; Z79.02 Long term (current) use of antithrombotics/antiplatelets; Z79.899 Other long term (current) drug therapy; Z87.891 Personal history of nicotine dependence
CPT/HCPCS: 71045; 80053; 81001; 85025; 87077; 87086; 87186; 93005; 93010; 96361; 96365; 99284-25; A9270; J1956; J7030; P9612

== ENCOUNTER 2022-12-02 17:58 | Inpatient (IN) | payer MEDICARE, OTHER ==
[~2022-12-02] VITALS: Ht 157.5 cm; Wt 79.0 kg
[~2022-12-02 17:58] MED LIST changes: +LEVFLO500 PO
[2022-12-02 18:37] LABS: Source, Urine Voided
[2022-12-02 18:39] LABS: Appearance, Urine Cloudy (Clear); Bilirubin, Urine Neg (Neg); Blood, Urine 2+ (Neg); Color, Urine Yellow (P-Yellow); Glucose Qualitative, Urine Neg (Neg); Ketones, Urine 4+ (Neg); Leukocyte Esterase, Urine 3+ (Neg); Nitrite, Urine Neg (Neg); Protein, Urine 2+ (Neg); Urobilinogen, Urine 1+ (Normal)
[2022-12-02 18:46] LABS: White Blood Cells, Urine TNTC /hpf (0-5)
[2022-12-02 18:47] LABS: Bacteria Many /hpf; Calcium Oxalate Crystals Rare /hpf; Squamous Epithelial Cells Mod /hpf (Few); Yeast/Fungi Urine Mod /hpf
[2022-12-02 20:36] LABS: BASOPHILS ABSOLUTE AUTO 0.03 K/mm3 (0.00-0.23); BASOPHILS PERCENT AUTO 0 % (0-2); EOSINOPHILS ABSOLUTE AUTO 0.09 K/mm3 (0.00-0.68); EOSINOPHILS PERCENT AUTO 1 % (0-6); Hematocrit 42.4 % (33.0-51.0); Hemoglobin 14.6 g/dL (11.5-16.0); IMMATURE GRAN ABSOLUTE AUTO 0.03 K/mm3 (0.00-0.10); IMMATURE GRAN PERCENT AUTO 0 % (0-1); LYMPHOCYTES ABSOLUTE AUTO 1.17 K/mm3 (0.84-5.20); LYMPHOCYTES PERCENT AUTO 13 % (21-46); MONOCYTES ABSOLUTE AUTO 0.68 K/mm3 (0.16-1.47); MONOCYTES PERCENT AUTO 7 % (4-13); Mean Corpuscular HGB 32.4 pg (26.0-34.0); Mean Corpuscular HGB Conc 34.4 g/dL (31.5-36.5); Mean Corpuscular Volume 94 fL (80-100); Mean Platelet Volume 10.1 fL (9.1-12.4); NEUTROPHILS ABSOLUTE AUTO 7.25 K/mm3 (1.96-9.15); NEUTROPHILS PERCENT AUTO 78 % (41-73); Platelet Count 236 K/mm3 (150-400); RDW Coefficient Variation 13.3 % (11.7-14.2); RDW Standard Deviation 46.1 fL (35.1-46.3); White Blood Cell Count 9.25 K/mm3 (4.00-11.30)
[2022-12-02 20:47] LABS: Albumin, Blood 3.1 g/dL (3.4-5.0); Albumin/Globulin Ratio 0.9 (0.8-1.8); Bilirubin, Total 1.1 mg/dL (0.1-1.0); Bun/Creatinine Ratio 19.5 (12.0-20.0); Calcium, Blood 10.2 mg/dL (8.5-10.1); Creatinine, Blood 0.72 mg/dL (0.40-1.00); Globulin, Blood 3.5 g/dL (2.2-4.0); Potassium, Blood 3.2 mmol/L (3.5-5.5); Total Protein, Blood 6.6 g/dL (6.4-8.2)
[2022-12-02 23:40] VITALS: BP 136/86
--- NOTE | 2022-12-03 | NUR ---
TRANSFER NOTE THIS RN RECEIVED REPORT FROM KARINA WAGNER IN THE ED. PT TRANSFERRED TO PCU 4. PT LETHARGIC AND ORIENTED TO SELF. SONS NOT PRESENT. PT UNSURE OF MEDICATIONS SHE TAKES AT HOME. CONFUSED ABOUT DATE/LOCATION. PT NOT FOLLOWING DIRECTIONS WELL. REPORTS BEING WHEELCHAIR BOUND AT HOME. NS AND KCL INFUSING PER EMAR. BP STABLE. SR BBB WITH HR 80-90'S ON MONITOR. ON 2L VIA NC WITH SPO2 >92%. AFEBRILE. BED BATH GIVEN. PT WITH NOTABLE YEAST-LIKE SMELL. DRIED BM NOTED. REDNESS TO ALEXANDRA AREA AND GROIN. CLEANED, DRIED, AND POWDER APPLIED. BED IN LOWEST POSITION AND CALL LIGHT WITHIN REACH.
[2022-12-03 04:00] VITALS: BP 153/70
--- NOTE | 2022-12-03 04:36 | NUR ---
SHIFT SUMMARY SEE PREVIOUS NOTE. NO ACUTE CHANGES SINCE ARRIVAL TO UNIT. PT IS MORE ALERT AND ORIENTED X2-3. CONFUSED ABOUT SPECIFIC DATE BUT ORIENTED TO SELF, LOCATION, AND SITUATION NOW. PUREWICK IN PLACE. NO OUTPUT YET THIS SHIFT; BLADDER SCAN SHOWED 75MLS; WILL CONTINUE TO MONITOR. NS INFUSING PER EMAR. VITALS STABLE AND UNCHANGED. REPOSITIONING Q2HRS. BED IN LOWEST POSITION AND CALL LIGHT WITHIN REACH. THIS RN WILL REPORT TO ONCOMING RN.
[2022-12-03 07:08] LABS: Bun/Creatinine Ratio 15.8 (12.0-20.0); Calcium, Blood 9.6 mg/dL (8.5-10.1); Creatinine, Blood 0.76 mg/dL (0.40-1.00); Potassium, Blood 3.6 mmol/L (3.5-5.5)
[2022-12-03 07:51] VITALS: BP 179/80
[2022-12-03 07:57] VITALS: BP 144/72
[2022-12-03] MEDS ORDERED: Acetaminophen650 M1 PO (08:48)
[2022-12-03] MEDS ORDERED: NITR100CA PO (08:50)
--- NOTE | 2022-12-03 09:51 | NUR ---
"Spiritual Care Visit | Pt. request Pt. is resting in bed but responds when I enter the room. Pt. is unsettled about events at home, Pt. displays evidence of confusion and then displays clarity when she verbalizes about her sons. Pt. displays evidence of trust with the life consultant. Prayed with Pt. Pt. displayed evidence of not tracking during our visit. Will remain available to the Pt."
[2022-12-03 11:59] VITALS: BP 147/72
[2022-12-03 15:24] VITALS: BP 154/62
--- NOTE | 2022-12-03 16:52 | NUR ---
TUYET'S SONS IN TO VISIT AND THIS RN PROVIDED UPDATE. SONS TO VISIT AGAIN TOMORROW.
--- NOTE | 2022-12-03 18:00 | NUR ---
PHYSICIAN CONTACT CALL PLACED TO PHYSICIAN REGARDING CHANGE IN MENTATION. PT UNABLE TO ANSWER MOST QUESTIONS OR FOLLOW CONVERSATIONS. HEAD BOBBING NOTED WITH WINCING; PT UNABLE TO ANSWER QUESTIONS REGARDING PAIN OR CAUSE OF WINCING. REPEATEDLY STATES "OH BOY" BUT CANNOT ELABORATE. PT ORIENTED TO SELF, UNSURE OF DATE/TIME/SITUATION. PUPILS EQUAL AND REACTIVE TO LIGHT. NO FACIAL DROOP NOTED. BILATERAL BUFFING MACHINE OPERATOR SEMIAUTOMATIC STRENGTH WEAKER THAN ON ASSESSMENT THIS AM, LEFT WEAKER THAN RIGHT. PHYSICIAN NOTIFIED OF THE ABOVE CHANGES AND PLANS TO COME TO BEDSIDE.
--- NOTE | 2022-12-03 18:06 | NUR ---
END OF SHIFT NOTE: PT ALERT AND ORIENTED X1-3 T/O SHIFT. SEE PREVIOUS NOTE REGARDING MENTATION CHANGE THIS PM. ABLE TO FOLLOW SOME COMMANDS APPROPRIATELY. HR SR, 70-90'S. SBP 140-150'S. SPO2 >95% ON 2L VIA NC. NO VISIBLE DYSPNEA OR ACCESSORY MUSCLE USE. PUREWICK IN PLACE, MINIMAL ABNER-COLORED URINE OUTPUT THIS SHIFT. ATTENDS CHANGED TO KEEP C/D/I, POWDER APPLIED TO GROIN REGION. REPOSITIONING Q2HRS AND NEEDED FOR PT COMFORT. BED IN LOWEST POSITION, CALL LIGHT WITHIN REACH. WILL REPORT TO ONCOMING NOC RN.
[2022-12-03 20:33] VITALS: BP 146/69
[2022-12-03 20:55] LABS: Bun/Creatinine Ratio 17.1 (12.0-20.0); Calcium, Blood 9.6 mg/dL (8.5-10.1); Creatinine, Blood 0.7 mg/dL (0.40-1.00); Potassium, Blood 3.3 mmol/L (3.5-5.5)
[2022-12-04 03:19] VITALS: BP 138/57
[2022-12-04 05:12] LABS: Vancomycin, Trough 16.2 ug/mL (5.0-10.0)
--- NOTE | 2022-12-04 06:39 | NUR ---
SHIFT SUMMARY PATIENT ALERT AND ORIENTED TO SELF, HAS DIFFICULTY FOLLOWING CONVERSATION AND DIRECTIONS. BEDREST. MEDICATED PER EMAR FOR PAIN. PATIENT SLEPT WELL OVERNIGHT. SPO2 HIGH 90'S ON 1 LITER O2 NC. VITAL SIGNS STABLE. NO ACUTE ISSUES NOTED. WILL CONTINUE TO MONITOR. CALL LIGHT WITHIN REACH.
[2022-12-04 07:33] VITALS: BP 154/64
[2022-12-04 11:17] LABS: BASOPHILS ABSOLUTE AUTO 0.04 K/mm3 (0.00-0.23); BASOPHILS PERCENT AUTO 0 % (0-2); EOSINOPHILS ABSOLUTE AUTO 0.23 K/mm3 (0.00-0.68); EOSINOPHILS PERCENT AUTO 2 % (0-6); Hematocrit 39.2 % (33.0-51.0); Hemoglobin 12.9 g/dL (11.5-16.0); IMMATURE GRAN ABSOLUTE AUTO 0.04 K/mm3 (0.00-0.10); IMMATURE GRAN PERCENT AUTO 0 % (0-1); LYMPHOCYTES ABSOLUTE AUTO 1.38 K/mm3 (0.84-5.20); LYMPHOCYTES PERCENT AUTO 14 % (21-46); MONOCYTES ABSOLUTE AUTO 0.59 K/mm3 (0.16-1.47); MONOCYTES PERCENT AUTO 6 % (4-13); Mean Corpuscular HGB 32.6 pg (26.0-34.0); Mean Corpuscular HGB Conc 32.9 g/dL (31.5-36.5); Mean Platelet Volume 10.5 fL (9.1-12.4); NEUTROPHILS ABSOLUTE AUTO 7.88 K/mm3 (1.96-9.15); NEUTROPHILS PERCENT AUTO 78 % (41-73); Platelet Count 200 K/mm3 (150-400); RDW Coefficient Variation 13.8 % (11.7-14.2); RDW Standard Deviation 50.5 fL (35.1-46.3); Red Blood Cell Count 3.96 M/mm3 (3.80-5.20); White Blood Cell Count 10.16 K/mm3 (4.00-11.30)
[2022-12-04 11:19] VITALS: BP 149/86
[2022-12-04 11:35] LABS: Albumin, Blood 2.5 g/dL (3.4-5.0); Albumin/Globulin Ratio 0.8 (0.8-1.8); Bilirubin, Total 0.5 mg/dL (0.1-1.0); Bun/Creatinine Ratio 16.1 (12.0-20.0); Calcium, Blood 9.5 mg/dL (8.5-10.1); Creatinine, Blood 0.68 mg/dL (0.40-1.00); Mean Corpuscular Volume 99 fL (80-100); Potassium, Blood 3.7 mmol/L (3.5-5.5); Total Protein, Blood 5.5 g/dL (6.4-8.2)
[2022-12-04 15:07] VITALS: BP 135/58
--- NOTE | 2022-12-04 16:32 | NUR ---
END OF SHIFT NOTE PT ALERT AND ORIENTED X1-2 T/O SHIFT. ONLY ORIENTED TO SELF THIS AM, ABLE TO ENGAGE IN MORE CONVERSATION THIS PM. ABLE TO MAKE NEEDS KNOWN AND FOLLOW SOME COMMANDS. HR 80'S, SBP 130-150'S. DENIES CP/PRESSURE. SPO2 >95% ON 1L VIA NC, NO S/SX OF SOB. AFEBRILE. PT REPORTS PAIN IN GLUTEAL REGION, REPORTS RELIEF WHEN REPOSITIONED ON SIDES WITH PILLOWS. INCONTINENT OF URINE, PUREWICK IN PLACE W/ DARK YELLOW URINE. NO BM THIS SHIFT. ATTENDS CHANGED TO KEEP C/D/I. Q2 TURNS PROVIDED. D5 1/2NS INFUSING PER EMAR. SCD'S IN PLACE FOR DVT PROPHYLAXIS. CALL LIGHT WITHIN REACH. BED IN LOWEST POSITION, BED ALARM ON.
--- NOTE | 2022-12-04 17:15 | NUR ---
TRANSFER TO MEDICAL: PT TRANSFERRED FROM U4 TO [facility] 359 AT 1715. NO ACUTE EVENTS FOLLOWING END OF SHIFT NOTE, SEE NOTE FOR FURTHER DETAILS. VSS AT TIME OF TRANSFER. REPORT GIVEN TO [facility] 359 BERNARD.
[2022-12-04 19:47] VITALS: BP 156/67
[2022-12-05 04:49] VITALS: BP 151/73
[2022-12-05 07:41] VITALS: BP 150/74
[2022-12-05 07:54] LABS: Vancomycin, Trough 26.2 ug/mL (5.0-10.0)
[2022-12-05 08:09] LABS: Bun/Creatinine Ratio 17.6 (12.0-20.0); Calcium, Blood 9.6 mg/dL (8.5-10.1); Creatinine, Blood 0.68 mg/dL (0.40-1.00); Potassium, Blood 3.7 mmol/L (3.5-5.5)
[2022-12-05 15:33] VITALS: BP 136/62
--- NOTE | 2022-12-05 16:24 | NUR ---
SHIFT SUMMARY PT TRANSFERED TO [facility] YESTERDAY AT END OF SHIFT, FROM PCU 4. PT ADMITTED FOR SEVERE SEPSIS R/T UTI. SENT TO ER BY SON'S D/T POOR PO INTAKE, WEAKNESS, AND CONFUSION. PER PCU REPORT YESTERDAY, PT COVERED IN FECES AND URINE. HX OF HTN, CVA W/L SIDE DEFICITS AND CONTRACTURE, CAD AND STENTS. THIS AM LAB CALLED TO REPORT +BCX'S AT 10:23; GRAM + COCCI IN CLUSTERS. DR SOUSA AWARE. LAB HAS BEEN UNABLE TO OBTAIN ANY BLOOD DRAWS OR VANCO TROUGH ORDERED. MULTIPLE ATTEMPTS MADE BY A NUMBER OF STAFF, UNSUCCESSFUL. PG TO BONITA DOES NOT DRAW. DR SOUSA UPDATED ON STATUS. PALLIATIVE CARE CONSULT PLACED. PT IS FULL CODE STATUS, DOES NOT WANT TO EAT AND HAS BEEN DIFFICULT TO TX. PER PCU REPORT, PT WAS DNR WHEN HERE IN SEPTEMBER. PT IS INCONTINENT OF BOWEL AND BLADDER. DOES NOT LIKE TO BE MOVED OR TURNED FOR REPOSITIONING. PT IS W/C BOUND AT BASELINE, BUT UNABLE TO SIT UP OR MOVE AT ALL PRESENTLY. PT'S SON'S ARE HER CAREGIVERS AT THIS TIME. PT REPOSITIONED THRU OUT SHIFT TO KEEP OFF BUTTOCKS AND FOR COMFORT OF BOTTOM/TAILBONE FROM FALL AT HOME. RESTING QUIETLY AT THIS TIME. CALL LT IN REACH.
[2022-12-05 19:42] VITALS: BP 151/69
[2022-12-06 03:38] VITALS: BP 157/84
--- NOTE | 2022-12-06 04:58 | NUR ---
SHIFT SUMMARY PTS MENTAL STATUS GREATLY IMPROVED FROM PRIOR NIGHT. PT ONLY DISORIENTED TO TIME. BONITA POWERGLIDE INFILTRATED AT BEGINNING OF SHIFT. NO ACCESS HAS BEEN ABLE TO BE REESTABLISHED BOTH PERIPHERAL OR POWERGLIDE.
[2022-12-06 06:28] LABS: BASOPHILS ABSOLUTE AUTO 0.05 K/mm3 (0.00-0.23); BASOPHILS PERCENT AUTO 1 % (0-2); EOSINOPHILS ABSOLUTE AUTO 0.22 K/mm3 (0.00-0.68); EOSINOPHILS PERCENT AUTO 3 % (0-6); Hematocrit 38.1 % (33.0-51.0); Hemoglobin 12.8 g/dL (11.5-16.0); IMMATURE GRAN ABSOLUTE AUTO 0.02 K/mm3 (0.00-0.10); IMMATURE GRAN PERCENT AUTO 0 % (0-1); LYMPHOCYTES ABSOLUTE AUTO 1.55 K/mm3 (0.84-5.20); LYMPHOCYTES PERCENT AUTO 24 % (21-46); MONOCYTES ABSOLUTE AUTO 0.44 K/mm3 (0.16-1.47); MONOCYTES PERCENT AUTO 7 % (4-13); Mean Corpuscular HGB 32.4 pg (26.0-34.0); Mean Corpuscular HGB Conc 33.6 g/dL (31.5-36.5); Mean Corpuscular Volume 97 fL (80-100); Mean Platelet Volume 10.7 fL (9.1-12.4); NEUTROPHILS PERCENT AUTO 64 % (41-73); Platelet Count 173 K/mm3 (150-400); RDW Coefficient Variation 13.7 % (11.7-14.2); RDW Standard Deviation 48.5 fL (35.1-46.3); Red Blood Cell Count 3.95 M/mm3 (3.80-5.20); White Blood Cell Count 6.38 K/mm3 (4.00-11.30)
[2022-12-06 06:42] LABS: Alanine Aminotransfer (ALT/SGP 13 U/L (12-78); Albumin, Blood 2.5 g/dL (3.4-5.0); Albumin/Globulin Ratio 0.9 (0.8-1.8); Alk Phos 76 U/L (50-136); Anion Gap 5 mmol/L (6-16); Aspartate Aminotrans (AST/SGOT 17 U/L (12-37); Bilirubin, Total 0.5 mg/dL (0.1-1.0); Blood Urea Nitrogen 10 mg/dL (8-24); Bun/Creatinine Ratio 14.7 (12.0-20.0); CO2, Blood 26 mmol/L (21-32); Calcium, Blood 9.5 mg/dL (8.5-10.1); Chloride, Blood 114 mmol/L (98-108); Creatinine, Blood 0.68 mg/dL (0.40-1.00); Globulin, Blood 2.9 g/dL (2.2-4.0); Glomerular Filtration Rate 86 (60-); Glucose, Blood 99 mg/dL (70-99); Potassium, Blood 3.3 mmol/L (3.5-5.5); Sodium, Blood 145 mmol/L (136-145); Total Protein, Blood 5.4 g/dL (6.4-8.2); Vancomycin, Random 16.1 ug/mL
[2022-12-06 07:09] VITALS: BP 153/85
[2022-12-06 13:43] VITALS: BP 150/77
--- NOTE | 2022-12-06 19:06 | NUR ---
SHIFT SUMMARY: NO ACUTE EVENTS. MULTIPLE ATTEMPTS MADE TO PLACE IV ACCESS FOR ABX, BUT NO VIABLE VEINS IDENTIFIED EVEN BY ULTRASOUND; DR. SOUSA MADE AWARE. ABX CHANGED TO PO. 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 CALLED BY BDC MANAGER AT ~ 1330 THAT PT WAS HAVING ST CHANGES; HAD STRATEGIC SOURCING CONSULTANT ASSESS AND PT WAS ASYMPTOMATIC BUT IN AN UNCOMFORTABLE POSITION. OTHERWISE TELE SHOWED SR 85-96 WITH PVC'S. SPITS OUT SOME PILLS EVEN WHEN PUT IN AMALIA PUDDING. BOWEL MEDS HAVE BEEN ORDERED.
[2022-12-06 19:51] VITALS: BP 154/69
[2022-12-07 03:24] VITALS: BP 150/81
[2022-12-07 04:57] LABS: BASOPHILS ABSOLUTE AUTO 0.04 K/mm3 (0.00-0.23); BASOPHILS PERCENT AUTO 1 % (0-2); EOSINOPHILS ABSOLUTE AUTO 0.18 K/mm3 (0.00-0.68); EOSINOPHILS PERCENT AUTO 3 % (0-6); Hematocrit 38.4 % (33.0-51.0); Hemoglobin 13.3 g/dL (11.5-16.0); IMMATURE GRAN ABSOLUTE AUTO 0.02 K/mm3 (0.00-0.10); IMMATURE GRAN PERCENT AUTO 0 % (0-1); LYMPHOCYTES ABSOLUTE AUTO 1.68 K/mm3 (0.84-5.20); LYMPHOCYTES PERCENT AUTO 26 % (21-46); MONOCYTES ABSOLUTE AUTO 0.45 K/mm3 (0.16-1.47); MONOCYTES PERCENT AUTO 7 % (4-13); Mean Corpuscular HGB 32.4 pg (26.0-34.0); Mean Corpuscular HGB Conc 34.6 g/dL (31.5-36.5); Mean Corpuscular Volume 94 fL (80-100); Mean Platelet Volume 10.8 fL (9.1-12.4); NEUTROPHILS ABSOLUTE AUTO 4.06 K/mm3 (1.96-9.15); NEUTROPHILS PERCENT AUTO 63 % (41-73); Platelet Count 185 K/mm3 (150-400); RDW Coefficient Variation 13.6 % (11.7-14.2); RDW Standard Deviation 46.4 fL (35.1-46.3); White Blood Cell Count 6.43 K/mm3 (4.00-11.30)
[2022-12-07 05:24] LABS: Bun/Creatinine Ratio 14.4 (12.0-20.0); Calcium, Blood 9.7 mg/dL (8.5-10.1); Creatinine, Blood 0.76 mg/dL (0.40-1.00)
[2022-12-07 08:59] VITALS: BP 143/72
--- NOTE | 2022-12-07 13:48 | NUR ---
THIS AUTHOR WAS INFORMED BY JEFF MCKEON, WHO HAD CARED FOR THIS PATIENT PREVIOUSLY DURING THIS ADMISSION, THAT PATIENT HAD BEEN DROPPED ON THE FLOOR HER SONS WERE TRYING TO MOVE HER AT HOME COAGULATOR, AND WAS ACCIDENTALLY RUN OVER BY HER W/C WHEELS. SHE HAS BEEN C/O PAIN IN HER "BOTTOM" AND IS ONLY COMFORTABLE WHEN ON HER L SIDE. HAS BEEN REFUSING OFFERED TYLENOL. THIS AFTERNOON THIS AUTHOR SPOKE TO PT'S SON CHEMO, WHO STATED THAT PT HAD BEEN DIAGNOSED WITH THRUSH IN HER MOUTH COAGULATOR, BUT HAD BEEN UNABLE TO START MEDICATION AT HOME D/T HER INCREASING CONFUSION AND WEAKNESS. ALSO STATED THAT PT HAD NOT HAD BM FOR SEVERAL DAYS COAGULATOR. THIS MAY EXPLAIN WHY PT IS REFUSING TO EAT AND DRINK. THIS AUTHOR SPOKE TO DR. SOUAS BY PHONE TO REPORT THESE "NEW" FINDINGS AND REQUESTED XRAYS TO R/O PELVIC FRACTURE, MEDICATION FOR THRUSH, AND SOMETHING OTHER THAN MIRALAX TO PROMPT A BM. AWAITING ORDERS.
--- NOTE | 2022-12-07 13:59 | NUR ---
REQUESTED THAT TECHNICAL DELIVERY MANAGER TRY AGAIN TO PLACE IV USING U/S.
[2022-12-07 15:33] VITALS: BP 150/101
[2022-12-07 19:35] VITALS: BP 140/79
--- NOTE | 2022-12-07 19:35 | NUR ---
SHIFT SUMMARY: NO ACUTE EVENTS. NO EVENTS ON TELEMETRY, SR PVC'S 90'S. 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 IS MORE ALERT AND CONVERSANT TODAY. BISACODYL SUPPOSITORY GIVEN AND HAD VERY VERY SMALL BM, BUT STATED THAT "THINGS ARE STARTING TO MOVE DOWN THERE." STARTED ON [place]STATIN FOR ORAL THRUSH, TOLERATING. STILL DOESN'T WANT TO EAT OR DRINK AND DOES NOT WANT ANY ORAL CARE. URINE OUTPUT HAS IMPROVED. C/O PAIN IN L ARM, TAILBONE/"BOTTOM", DECLINED OFFERED TYLENOL. PT'S SONS ARE HOPING FOR PT TO GET XRAYS TO R/O PELVIC OR SACRAL FX.
[2022-12-08 03:52] VITALS: BP 129/58
--- NOTE | 2022-12-08 04:37 | NUR ---
SHIFT SUMMARY NOC PT A/O TO SELF/FAMILY. PLEASANTLY CONFUSED. NO ACUTE CHANGES TO REPORT.PT HAS STILL NOT HAD BM AFTER RECEIVING BOWEL CARE RX. PT FAMILY WAS IN ROOM AT BEGINNING OF SHIFT. PT ON TELE RUNNING NSR @ 70 BPM. PG IN NICOLE. PT REPOSITIONED Q2H/PRN. PT EXPECTED TO DISCHARGE HOME WITH HOME HEALTH ON 12/09/22.PT REFUSED HS RX.PTIS CURRENTLY RESTING WITH BED IN LOWEST POSITION, AND CALL LIGHT WITHIN REACH.
[2022-12-08] MEDS ORDERED: CYMBALTA20 M2 PO (04:44)
[2022-12-08] MEDS ORDERED: TOPROL XL50 M1 PO (04:45)
[2022-12-08] MEDS ORDERED: FLUC200 PO (04:46)
[2022-12-08 07:40] VITALS: BP 140/76
[2022-12-08 08:32] LABS: BASOPHILS ABSOLUTE AUTO 0.03 K/mm3 (0.00-0.23); BASOPHILS PERCENT AUTO 0 % (0-2); EOSINOPHILS ABSOLUTE AUTO 0.03 K/mm3 (0.00-0.68); EOSINOPHILS PERCENT AUTO 0 % (0-6); Hematocrit 38.1 % (33.0-51.0); IMMATURE GRAN ABSOLUTE AUTO 0.07 K/mm3 (0.00-0.10); IMMATURE GRAN PERCENT AUTO 0 % (0-1); LYMPHOCYTES PERCENT AUTO 6 % (21-46); MONOCYTES ABSOLUTE AUTO 0.69 K/mm3 (0.16-1.47); MONOCYTES PERCENT AUTO 4 % (4-13); Mean Corpuscular HGB 32.3 pg (26.0-34.0); Mean Corpuscular HGB Conc 34.1 g/dL (31.5-36.5); Mean Corpuscular Volume 95 fL (80-100); Mean Platelet Volume 11.2 fL (9.1-12.4); NEUTROPHILS ABSOLUTE AUTO 14.15 K/mm3 (1.96-9.15); NEUTROPHILS PERCENT AUTO 89 % (41-73); Platelet Count 178 K/mm3 (150-400); RDW Standard Deviation 48.2 fL (35.1-46.3); Red Blood Cell Count 4.02 M/mm3 (3.80-5.20); White Blood Cell Count 15.87 K/mm3 (4.00-11.30)
[2022-12-08 09:07] LABS: Bun/Creatinine Ratio 14.1 (12.0-20.0); Calcium, Blood 9.3 mg/dL (8.5-10.1); Creatinine, Blood 0.78 mg/dL (0.40-1.00); Potassium, Blood 3.5 mmol/L (3.5-5.5)
--- NOTE | 2022-12-08 15:08 | NUR ---
Spoke to pt's 2 sons Sudarshan and Ramiro at length. 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 This admission, the pt had a UTI and sepsis. The sons have decided to place patient into the care of [facility], and in agreement with hospice eval at this time and admit if indicated.
[2022-12-08 16:15] VITALS: BP 142/63
--- NOTE | 2022-12-08 18:18 | NUR ---
SUMMARY- PT ALERT TO SELF AND FAMILY. BEDRIDDEN AND DEPENDANT IN CARE. PT WAS LESS RESPONSIVE THIS AM. APPEARED WIDE EYED AND FRIGHTENED. WOULD NOT SPEAK, ONLY SAY "OUCH" WHEN MOVING OR TOUCHING. PT REFUSED ALL ORAL INTAKE. PT BECAME COMFORT CARE, MEDICATED WITH ROXONOL AND ATIVAN FOR PAIN AND ANXIETY AT 1800. PT BECAME MORE INTERACTIVE, APPEARED MORE COMFORTABLE AND NOT AFRAID ANYMORE. IVF DC'D. PT TOLERATING SIPS OF CLEARS AND PUDDING FOR DINNER. USING PUREWICK FOR INCONT VOIDS. PLAN FOR PT TO GO HOME WITH HOSPICE WITH HER 2 SONS TO CARE FOR HER. WILL REPORT TO JOEY WAGNER.
--- NOTE | 2022-12-09 06:09 | NUR ---
SHIFT SUMMARY PT RESPONDS TO VERBAL STIMULI. PT TALKING A LITTLE BIT AT BEGINNING OF SHIFT DURING BEDSIDE REPORT, SONS AT BEDSIDE. SHORTLY AFTER 1900 PT ASLEEP, SONS LEFT BEDSIDE. PT REPOSITIONED T/O SHIFT. PT PULLED OUT PUREWICK, DURING A CHANGING AND REPOSITIONING PT LOOKED FEARFUL AND ANXIOUS, WHEN ASKED IF SHE WAS IN PAIN PT RESPONDED YES WITH A TENSE FACE; PT MEDICATED FOR PAIN AND ANXIETY AT 0420. NO ACUTE CHANGES NOTED. BED IS LOCKED IN THE LOWEST POSITION.
[2022-12-09 07:07] VITALS: BP 135/60
--- NOTE | 2022-12-09 13:56 | NUR ---
Spiritual Care visit. Pt. is on Comfort Care and is only limited in her response to my visit. As this curve cleaner attempted to establish rapport and trust, pt. would just stare and unitelligiably mumble. Sought to listen with emapthy and a calming presence. At one point, the Pt. verbalized "Am I going to get better?" This curve cleaner sought to comfort and encourage the Pt. Prayed for Pt. Will continue to be available to Pt. and family.
[2022-12-09 15:24] VITALS: BP 139/55
--- NOTE | 2022-12-09 19:59 | NUR ---
SUMMARY- PT ON COMFORT CARE. DEPENDANT WITH ADL'S- TURNED ROUTINE. ORAL CARE. USING PUREKICK FOR URINE. ROXONOL 10MG ONCE TODAY FOR S/S OF PAIN, STATED IN PERVIC REGION. SONS CALLED AND REQ 1000 TX BE DELAYED UNTIL AFTER THE OIL WELL SHOOTER COMES TO THE HOUSE TO EVAL HOME. NOC RN SHAE AWARE AND WILL RELAY INFO TO DAY RN AND DIGITAL MARKETING ANALYST TOMORROW.
--- NOTE | 2022-12-10 03:04 | NUR ---
SHIFT SUMMARY PT ALERT AT TIMES, SLEEPING OR RESTING. SOME GRIMACES OR WHIMPERING "OUCH". TREATED PER EMAR WHICH WAS EFFECTIVE FOR PT AND SHE WAS ABLE TO FALL BACK TO SLEEP. PT TAKING IN ONLY A FEW SIPS OF WATER AT THIS TIME. PUREWICK IN PLACE DIURESING DARK YELLOW URINE. REPOSITIONED T/O THE NIGHT. HEEL PROTECTORS IN PLACE. NO ACUTE CHANGES OVERNIGHT. PT HAS TRANSPORT SET UP FOR 10AM. FAMILY WOULD LIKE TO HALT THAT THEY ARE MEETING WITH HOSPICE AT THAT TIME. WILL PASS ON. CHARGE NOTIFIED OF THIS REQUEST. CONTINUE TO MONITOR.
[2022-12-10 07:31] VITALS: BP 138/62
== END 2022-12-10 10:12 | disposition hospice, home (50) | DRG 872 ==
LOC: ER 17:58 → PCU 23:20 → MEDS 12-04 17:43 → ENPENDDIS 12-10 08:41 → MEDS 12-10 10:12
PROVIDERS: Internal Medicine; Nurse Practitioner Acute Care; Student in an Organized Health Care Education/Training Program; ADMIT Internal Medicine
DX: A41.81 Sepsis due to Enterococcus (principal); I50.32 Chronic diastolic (congestive) heart failure; N39.0 Urinary tract infection, site not specified; I45.2 Bifascicular block; I13.0 Hypertensive heart and chronic kidney disease with heart failure and stage 1 through stage 4 chronic kidney disease, or unspecified chronic kidney disease; Z66 Do not resuscitate; Z51.5 Encounter for palliative care; R65.20 Severe sepsis without septic shock; I25.10 Atherosclerotic heart disease of native coronary artery without angina pectoris; E87.6 Hypokalemia; R00.1 Bradycardia, unspecified; M10.9 Gout, unspecified; F32.A Depression, unspecified; K21.9 Gastro-esophageal reflux disease without esophagitis; N18.2 Chronic kidney disease, stage 2 (mild); M85.80 Other specified disorders of bone density and structure, unspecified site; I25.2 Old myocardial infarction; Z79.82 Long term (current) use of aspirin; Z86.73 Personal history of transient ischemic attack (TIA), and cerebral infarction without residual deficits; Z88.5 Allergy status to narcotic agent; Z88.2 Allergy status to sulfonamides; Z87.442 Personal history of urinary calculi; Z88.1 Allergy status to other antibiotic agents; Z88.8 Allergy status to other drugs, medicaments and biological substances; Z79.02 Long term (current) use of antithrombotics/antiplatelets; Z79.899 Other long term (current) drug therapy; Z90.710 Acquired absence of both cervix and uterus; Z90.49 Acquired absence of other specified parts of digestive tract; Z95.5 Presence of coronary angioplasty implant and graft; Z93.6 Other artificial openings of urinary tract status; Z87.891 Personal history of nicotine dependence
CPT/HCPCS: 36415; 71045; 72170; 80048; 80053; 80202; 81001; 83605; 84484; 85025; 87040; 87086; 93005; 93010; 94760; 96365; 96367; 97110; 97162; 97530; 99285-25; A9270; C1751; J1650; J2020; J3370; J3480; J7030; J7042; J7050; J7120